=== PATIENT | female | born 1965 | race Caucasian/White ===

== ENCOUNTER → 2022-03-26 13:10 | Outpatient (BNVA) | payer MEDICARE, SELFPAY | PROVIDERS: PCP Nurse Practitioner Family; Visit Provider Nurse Practitioner Family | DX: R06.02 Shortness of breath (principal); E11.9 Type 2 diabetes mellitus without complications; E11.40 Type 2 diabetes mellitus with diabetic neuropathy, unspecified; I10 Essential (primary) hypertension; R60.9 Edema, unspecified; N18.32 Chronic kidney disease, stage 3b; Z95.5 Presence of coronary angioplasty implant and graft; Z86.73 Personal history of transient ischemic attack (TIA), and cerebral infarction without residual deficits; Z79.4 Long term (current) use of insulin | CPT/HCPCS: 80053; 80061; 82306; 82310; 83036; 83721; 83880; 83970; 84443 ==

== ENCOUNTER → 2022-04-10 12:08 | Outpatient (BNVA) | payer MEDICARE, SELFPAY | PROVIDERS: PCP Nurse Practitioner Family; Visit Provider Nurse Practitioner Family | DX: E11.22 Type 2 diabetes mellitus with diabetic chronic kidney disease (principal); I12.9 Hypertensive chronic kidney disease with stage 1 through stage 4 chronic kidney disease, or unspecified chronic kidney disease; N18.32 Chronic kidney disease, stage 3b; Z79.4 Long term (current) use of insulin; E78.2 Mixed hyperlipidemia; J44.9 Chronic obstructive pulmonary disease, unspecified; F41.9 Anxiety disorder, unspecified; F32.A Depression, unspecified; F43.10 Post-traumatic stress disorder, unspecified; E11.40 Type 2 diabetes mellitus with diabetic neuropathy, unspecified; G47.00 Insomnia, unspecified; R05.9 Cough, unspecified; G89.29 Other chronic pain | CPT/HCPCS: 80053; 82607; 82728; 82746; 83550 ==

== ENCOUNTER → 2022-05-15 12:49 | Outpatient (BNVA) | payer MEDICARE, SELFPAY | PROVIDERS: PCP Nurse Practitioner Family; Visit Provider Nurse Practitioner Family | DX: D64.9 Anemia, unspecified (principal); F50.89 Other specified eating disorder; J18.9 Pneumonia, unspecified organism; F32.A Depression, unspecified | CPT/HCPCS: 80053; 83550 ==

== ENCOUNTER 2022-08-05 16:22 | Inpatient (IN) | payer MEDICARE, MEDICAID, SELFPAY ==
[2022-08-05] VITALS (30 sets, daily range): BP systolic 90–147; BP diastolic 48–82; PULSE 60–69; RESP 12–21; TEMP 36.5–36.7; O2SAT 92–99; BMI 31.1
--- NOTE | 2022-08-05 16:26 | XRR_ITS ---
PROCEDURE INFORMATION: Exam: XR Chest Exam date and time: 08/05/2022 5:01 PM Age: 57 years old Clinical indication: Cough and dyspnea; Additional info: Dyspnea/cough TECHNIQUE: Imaging protocol: Radiologic exam of the chest. Views: 1 view. COMPARISON: No relevant prior studies available. FINDINGS: Lungs: Lungs are clear bilaterally. Calcified granuloma in the right lower lobe. Pleural spaces: No pleural effusion. No pneumothorax. Heart/Mediastinum: Cardiac silhouette is moderately enlarged. Mediastinal contours are unremarkable. Vasculature: Vascular calcifications in the aorta. Bones/joints: Unremarkable for age. XR/XR chest 1V portable [id number] IMPRESSION: 1. No acute cardiopulmonary process. 2. Incidental/nonacute findings are listed in the report.
--- NOTE | 2022-08-05 17:00 | W.ED.WEAKNES ---
Documented by User: Daniel Walter DO 08/07/22 10:59 HPI - Weakness General: Chief complaint: Weakness Stated complaint: weakness Time Seen by Provider: 08/05/22 16:26 Source: patient Mode of arrival: EMS History of Present Illness: The 7-year-old female who presents to the emergency room with multiple complaints and a near johnson positive review of systems. She is complaining of weakness for last few days complaining of pain all over complaining of chest pain for the last 2 to 3 days states she feels like someone is sitting on her chest. She states she has a fever with a productive cough and abdominal pain. She denies any vomiting but has been nauseous she has not had any diarrhea. She does deny any dysuria urgency or frequency. She reports having multiple seizures recently she has a history of seizures but is not on anything for them. Evidently it was discussed last year but she did not follow through on it. She is on apixaban no recent falls. She has a history of coronary disease and previous strokes has residual left-sided facial and arm and leg deficits. Complaint: generalized weakness Onset (ago): day(s) Duration: constant Location: generalized Relieving factors: none Exacerbating factors: none Associated symptoms: Reports chest pain, decreased appetite, fever(s), myalgias, nausea and short of breath; Denies chills, confusion, melena, diaphoresis, dysuria, easy bruising, headache(s), rash, syncope or vomiting Review of Systems Const: Reports: fever(s); Denies: chills or diaphoresis Card: Reports: chest pain; Denies: syncope GI: Reports: nausea; Denies: vomiting or melena : Denies: dysuria Neuro: Denies: headache(s) or confusion Johnson/Lymph: Denies: easy bruising PFS ED PFSH: Medical History (Updated 08/06/22 @ 10:20 by Hao Song MD) COVID-19 (12/2020) HOSPITALIZED 01/15/2021-06/09/2021 Diabetes mellitus type 2, insulin dependent Diabetic neuropathy History of heart attack History of stroke Hypertension Kidney carcinoma STAGE 4 LEFT KIDNEY REMOVED PTSD (post-traumatic stress disorder) Right great toe amputee SVT (supraventricular tachycardia) Surgical History History of heart artery stent Social History Smoking and tobacco status: never smoked Physical Exam Const: GENERAL APPEARANCE: cooperative and comfortable ORIENTATION/CONSCIOUSNESS: Yes awake, Yes oriented to person, Yes oriented to place and Yes oriented to time HENMT: COMMON NORMALS: normocephalic and atraumatic HEAD & SCALP: normocephalic and atraumatic Neck/C-Spine: COMMON NORMALS: full ROM, no lymphadenopathy and supple Resp: COMMON NORMALS: normal respiratory effort, No retractions, No use of accessory muscles and clear to auscultation bilaterally AUSCULTATION: clear to auscultation bilaterally Cardio: COMMON NORMALS: regular rate, regular rhythm and No murmurs present (Cardio) RATE: regular rate RHYTHM: regular rhythm GI: COMMON NORMALS: Soft to palpation and No hepatosplenomegaly present AUSCULTATION: Yes normoactive bowel sounds PALPATION: Yes Soft to palpation, No Tenderness to palpation present (GI), No Guarding due to palpation present (GI) and Yes No hepatosplenomegaly present Extremity: COMMON NORMALS: normal to inspection, capillary refill normal, no clubbing, cyanosis or edema, no calf tenderness and no pedal edema Neuro: SENSORIUM/ORIENTATION: Yes oriented to person, Yes oriented to place and Yes oriented to time OTHER: No focal neurologic deficits. Skin: COMMON NORMALS: no rashes or lesions noted GENERAL SKIN EXAM: no rashes or lesions noted Course Vital Signs: Vital signs: Vital Signs Temperature 97.6 F 08/07/22 07:00 Pulse Rate 80 08/07/22 10:12 Respiratory Rate 16 08/07/22 10:12 Blood Pressure 169/79 08/07/22 07:00 Pulse Oximetry 96 08/07/22 10:12 Oxygen Delivery Me thod 08/07/22 10:12 Oxygen Flow Rate 3 08/07/22 03:00 MDM - Weakness Medical Decision Making Care signed out to Dr. Ramachandran at change of shift. See final notes for diagnosis and disposition. Patient presents with weakness along with complaints of chest pain patient states she is not able to ambulate due to left leg weakness she does have some old deficits from her stroke she does have some slight facial droop she states that is old she has no visual deficits here is hard to discern what is old but her new symptoms been going on for 2 days with this weakness and difficulty walking head CT did show a possible acute infarct will admit at this time. Lab Data 08/05/22 16:57 08/05/22 16:57 Radiology Impressions Chest X-Ray 08/05/22 16:26 IMPRESSION: 1. No acute cardiopulmonary process. 2. Incidental/nonacute findings are listed in the report. Head CT 08/05/22 20:26 IMPRESSION: 1. There is an area of decreased density loss of cruz-matter differentiation in the right occipital lobe, findings are suspicious for an acute infarct. 2. Suem-gu-spjhzjgf mucoperiosteal thickening in the visualized paranasal sinuses. 3. Incidental/nonacute findings are listed in the report. COMMENTS: THIS REPORT CONTAINS FINDINGS THAT MAY BE CRITICAL TO PATIENT CARE. The findings were verbally communicated via telephone conference with BOBBI Queen at 10:05 PM DIRECTOR OF INDIVIDUAL GIVING on 08/05/2022. The findings were acknowledged and understood. Renal Ultrasound 08/06/22 01:44 IMPRESSION: 1. Negative RIGHT kidney. 2. Prior LEFT nephrectomy. 3. No post void residual in the urinary bladder. Laboratory Results WBC 11.3 10^3/uL (4.0-10.0) H 08/05/22 16:57 RBC 3.60 10^6/uL (4.1-5.3) L 08/05/22 16:57 Hgb 7.7 g/dL (11.5-15.3) L 08/05/22 16:57 Hct 27.3 % (37.0-47.0) L 08/05/22 16:57 MCV 75.8 fl (81-99) L 08/05/22 16:57 MCH 21.4 pg (28.0-34.0) L 08/05/22 16:57 MCHC 28.2 g/dL (30.0-36.0) L 08/05/22 16:57 RDW 18.8 % (12.1-15.1) H 08/05/22 16:57 Plt Count 403 10^3/cmm (130-400) H 08/05/22 16:57 MPV 10.2 fL (7.4-10.4) 08/05/22 16:57 Neut % (Auto) 62.6 % 08/05/22 16:57 Lymph % (Auto) 27.4 % 08/05/22 16:57 [place] % (Auto) 6.6 % 08/05/22 16:57 Eos % (Auto) 2.0 % 08/05/22 16:57 Baso % (Auto) 0.4 % 08/05/22 16:57 Neut # (Auto) 7.05 10^3/uL (1.8-7.7) 08/05/22 16:57 Lymph # (Auto) 3.1 10^3/uL (0.8-4.8) 08/05/22 16:57 [place] # (Auto) 0.7 10^3/uL (0.2-0.9) 08/05/22 16:57 Eos # (Auto) 0.2 10^3/uL (0.0-0.8) 08/05/22 16:57 Baso # (Auto) 0.1 10^3/uL (0.0-0.1) 08/05/22 16:57 Nucleated RBC % (auto) 0 % 08/05/22 16:57 Nucleated RBCs # 0.0 /100WBC 08/05/22 16:57 Sodium 133 mmol/L (136-145) L 08/05/22 16:57 Potassium 4.3 mmol/L (3.5-5.1) 08/05/22 16:57 Chloride 99 mmol/L (98-107) 08/05/22 16:57 Carbon Dioxide 21 mmol/L (22-29) L 08/05/22 16:57 Anion Gap 17.3 (5-19) 08/05/22 16:57 BUN 25 mg/dL (6-20) H 08/05/22 16:57 Creatinine 1.8 mg/dL (0.5-0.9) H 08/05/22 16:57 GFR Calculation 29.1 mL/min (90-130) L 08/05/22 16:57 Glucose 159 mg/dL (65-115) H 08/05/22 16:57 Calculated Osmolality 284 mOsm/kg (285-295) L 08/05/22 16:57 Calcium 8.4 mg/dL (8.5-10.5) L 08/05/22 16:57 Total Bilirubin 0.2 mg/dL (0.15-1.2) 08/05/22 16:57 AST 11 U/L (0-32) 08/05/22 16:57 ALT 10 U/L (0-33) 08/05/22 16:57 Alkaline Phosphatase 162 U/L (35-105) H 08/05/22 16:57 Creatine Kinase 41 U/L (26-192) 08/05/22 16:57 Troponin T Baseline 93 ng/L (0-10) H 08/05/22 16:57 Troponin T 120 Minute 91.10 ng/L (0-10) H 08/05/22 19:29 Delta Troponin T -1.90 ABS# (0-10) L 08/05/22 19:29 Total Protein 5.9 g/dL (6.6-8.7) L 08/05/22 16:57 Albumin 3.5 g/dL (3.5-5.2) 08/05/22 16:57 Globulin 2.4 g/dL (1.3-4.6) 08/05/22 16:57 Urine Color Yellow (Yellow) 08/05/22 17:15 Urine Appearance Clear (CLEAR) 08/05/22 17:15 Urine pH 5 (5-7) 08/05/22 17:15 Ur Specific [place] 1.015 (1.005-1.030) 08/05/22 17:15 Urine Protein 3+ (Negative) H 08/05/22 17:15 Urine Glucose (UA) 2+ (Normal) H 08/05/22 17:15 Urine Ketones Negative (Negative) 08/05/22 17:15 Urine Blood Neg (Negative) 08/05/22 17:15 Urine Nitrate Negative (Negative) 08/05/22 17:15 Urine Bilirubin Neg (Negative) 08/05/22 17:15 Urine Urobilinogen Neg mg/dL (Negative) 08/05/22 17:15 Ur Leukocyte Esterase Trace (Negative) H 08/05/22 17:15 Urine RBC Rare /hpf (0-2) 08/05/22 17:15 Urine WBC 10-15 /hpf (0-5) H 08/05/22 17:15 Ur Squamous Epith Cells 15-25 /hpf (0-5) H 08/05/22 17:15 Amorphous Sediment Not Reportable 08/05/22 17:15 Urine Bacteria 1+ /hpf (NONE) H 08/05/22 17:15 Serum Ketones Negative (Negative) 08/05/22 16:57 Discharge Plan Discharge Patient Disposition: Admitted As Inpatient Admit Provider: Rosette Canales Clinical Impression: Weakness, Chest pain Condition: Stable Discharge Diet: Advance as tolerated Discharge Activity: Resume usual activity Coding Level of Care Code 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[employer] Documented by User: Bobbi Ramachandran MD 08/05/22 22:33 HPI - Weakness General: Chief complaint: Weakness Stated complaint: weakness Time Seen by Provider: 08/05/22 16:26 PFSH ED PFSH: Medical History (Updated 08/06/22 @ 10:20 by Hao Song MD) COVID-19 (12/2020) HOSPITALIZED 01/15/2021-06/09/2021 Diabetes mellitus type 2, insulin dependent Diabetic neuropathy History of heart attack History of stroke Hypertension Kidney carcinoma STAGE 4 LEFT KIDNEY REMOVED PTSD (post-traumatic stress disorder) Right great toe amputee SVT (supraventricular tachycardia) Surgical History History of heart artery stent Social History Smoking and tobacco status: never smoked Course Vital Signs: Vital signs: Vital Signs Temperature 97.6 F 08/07/22 07:00 Pulse Rate 80 08/07/22 10:12 Respiratory Rate 16 08/07/22 10:12 Blood Pressure 169/79 08/07/22 07:00 Pulse Oximetry 96 08/07/22 10:12 Oxygen Delivery Me thod 08/07/22 10:12 Oxygen Flow Rate 3 08/07/22 03:00 MDM - Weakness Medical Decision Making Patient presents with weakness along with complaints of chest pain patient states she is not able to ambulate due to left leg weakness she does have some old deficits from her stroke she does have some slight facial droop she states that is old she has no visual deficits here is hard to discern what is old but her new symptoms been going on for 2 days with this weakness and difficulty walking head CT did show a possible acute infarct will admit at this time. Lab Data 08/05/22 16:57 08/05/22 16:57 Radiology Impressions Chest X-Ray 08/05/22 16:26 IMPRESSION: 1. No acute cardiopulmonary process. 2. Incidental/nonacute findings are listed in the report. Head CT 08/05/22 20:26 IMPRESSION: 1. There is an area of decreased density loss of cruz-matter differentiation in the right occipital lobe, findings are suspicious for an acute infarct. 2. Zkql-kj-jecegsrq mucoperiosteal thickening in the visualized paranasal sinuses. 3. Incidental/nonacute findings are listed in the report. COMMENTS: THIS REPORT CONTAINS FINDINGS THAT MAY BE CRITICAL TO PATIENT CARE. The findings were verbally communicated via telephone conference with BOBBI Queen at 10:05 PM DIRECTOR OF INDIVIDUAL GIVING on 08/05/2022. The findings were acknowledged and understood. Renal Ultrasound 08/06/22 01:44 IMPRESSION: 1. Negative RIGHT kidney. 2. Prior LEFT nephrectomy. 3. No post void residual in the urinary bladder. Laboratory Results WBC 11.3 10^3/uL (4.0-10.0) H 08/05/22 16:57 RBC 3.60 10^6/uL (4.1-5.3) L 08/05/22 16:57 Hgb 7.7 g/dL (11.5-15.3) L 08/05/22 16:57 Hct 27.3 % (37.0-47.0) L 08/05/22 16:57 MCV 75.8 fl (81-99) L 08/05/22 16:57 MCH 21.4 pg (28.0-34.0) L 08/05/22 16:57 MCHC 28.2 g/dL (30.0-36.0) L 08/05/22 16:57 RDW 18.8 % (12.1-15.1) H 08/05/22 16:57 Plt Count 403 10^3/cmm (130-400) H 08/05/22 16:57 MPV 10.2 fL (7.4-10.4) 08/05/22 16:57 Neut % (Auto) 62.6 % 08/05/22 16:57 Lymph % (Auto) 27.4 % 08/05/22 16:57 [place] % (Auto) 6.6 % 08/05/22 16:57 Eos % (Auto) 2.0 % 08/05/22 16:57 Baso % (Auto) 0.4 % 08/05/22 16:57 Neut # (Auto) 7.05 10^3/uL (1.8-7.7) 08/05/22 16:57 Lymph # (Auto) 3.1 10^3/uL (0.8-4.8) 08/05/22 16:57 [place] # (Auto) 0.7 10^3/uL (0.2-0.9) 08/05/22 16:57 Eos # (Auto) 0.2 10^3/uL (0.0-0.8) 08/05/22 16:57 Baso # (Auto) 0.1 10^3/uL (0.0-0.1) 08/05/22 16:57 Nucleated RBC % (auto) 0 % 08/05/22 16:57 Nucleated RBCs # 0.0 /100WBC 08/05/22 16:57 Sodium 133 mmol/L (136-145) L 08/05/22 16:57 Potassium 4.3 mmol/L (3.5-5.1) 08/05/22 16:57 Chloride 99 mmol/L (98-107) 08/05/22 16:57 Carbon Dioxide 21 mmol/L (22-29) L 08/05/22 16:57 Anion Gap 17.3 (5-19) 08/05/22 16:57 BUN 25 mg/dL (6-20) H 08/05/22 16:57 Creatinine 1.8 mg/dL (0.5-0.9) H 08/05/22 16:57 GFR Calculation 29.1 mL/min (90-130) L 08/05/22 16:57 Glucose 159 mg/dL (65-115) H 08/05/22 16:57 Calculated Osmolality 284 mOsm/kg (285-295) L 08/05/22 16:57 Calcium 8.4 mg/dL (8.5-10.5) L 08/05/22 16:57 Total Bilirubin 0.2 mg/dL (0.15-1.2) 08/05/22 16:57 AST 11 U/L (0-32) 08/05/22 16:57 ALT 10 U/L (0-33) 08/05/22 16:57 Alkaline Phosphatase 162 U/L (35-105) H 08/05/22 16:57 Creatine Kinase 41 U/L (26-192) 08/05/22 16:57 Troponin T Baseline 93 ng/L (0-10) H 08/05/22 16:57 Troponin T 120 Minute 91.10 ng/L (0-10) H 08/05/22 19:29 Delta Troponin T -1.90 ABS# (0-10) L 08/05/22 19:29 Total Protein 5.9 g/dL (6.6-8.7) L 08/05/22 16:57 Albumin 3.5 g/dL (3.5-5.2) 08/05/22 16:57 Globulin 2.4 g/dL (1.3-4.6) 08/05/22 16:57 Urine Color Yellow (Yellow) 08/05/22 17:15 Urine Appearance Clear (CLEAR) 08/05/22 17:15 Urine pH 5 (5-7) 08/05/22 17:15 Ur Specific [place] 1.015 (1.005-1.030) 08/05/22 17:15 Urine Protein 3+ (Negative) H 08/05/22 17:15 Urine Glucose (UA) 2+ (Normal) H 08/05/22 17:15 Urine Ketones Negative (Negative) 08/05/22 17:15 Urine Blood Neg (Negative) 08/05/22 17:15 Urine Nitrate Negative (Negative) 08/05/22 17:15 Urine Bilirubin Neg (Negative) 08/05/22 17:15 Urine Urobilinogen Neg mg/dL (Negative) 08/05/22 17:15 Ur Leukocyte Esterase Trace (Negative) H 08/05/22 17:15 Urine RBC Rare /hpf (0-2) 08/05/22 17:15 Urine WBC 10-15 /hpf (0-5) H 08/05/22 17:15 Ur Squamous Epith Cells 15-25 /hpf (0-5) H 08/05/22 17:15 Amorphous Sediment Not Reportable 08/05/22 17:15 Urine Bacteria 1+ /hpf (NONE) H 08/05/22 17:15 Serum Ketones Negative (Negative) 08/05/22 16:57 EKG Data EKG 1: I personally reviewed and interpreted this EKG as follows: EKG interpretation date: 08/05/22 EKG interpretation time: 19:53 Interpretation: sinus rehana hr [address] or t wave abnormalities qrs 98 qtc 408 Discharge Plan Discharge Patient Disposition: Admitted As Inpatient Admit Provider: Rosette Canales Clinical Impression: Weakness, Chest pain Condition: Stable Discharge Diet: Advance as tolerated Discharge Activity: Resume usual activity 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
[2022-08-05] MEDS: aspirin 81 mg Chew Tablet 324 MG PO ×2 (17:04→22:36)
[2022-08-05 17:11] LABS: Basophils # 0.1 10^3/uL (0.0-0.1); Basophils % 0.4 %; Eosinophils # 0.2 10^3/uL (0.0-0.8); Hematocrit 27.3 % (37.0-47.0); Hemoglobin 7.7 g/dL (11.5-15.3); Lymphocytes # 3.1 10^3/uL (0.8-4.8); Lymphocytes % 27.4 %; Mean Corpuscular HGB Conc 28.2 g/dL (30.0-36.0); Mean Corpuscular Hemoglobin 21.4 pg (28.0-34.0); Mean Corpuscular Volume 75.8 fl (81-99); Mean Platelet Volume 10.2 fL (7.4-10.4); Monocytes # 0.7 10^3/uL (0.2-0.9); Monocytes % 6.6 %; Neutrophils # 7.05 10^3/uL (1.8-7.7); Neutrophils % 62.6 %; Nucleated Red Blood Cells % 0 %; Platelet Count 403 10^3/cmm (130-400); Red Cell Distribution Width 18.8 % (12.1-15.1); White Blood Count 11.3 10^3/uL (4.0-10.0)
--- NOTE | 2022-08-05 17:28 | ECG_ITS ---
[facility] Test Date: 2022-08-05 Pat Name: Connie Costello Department: Room: Gender: Female Risk Compliance Manager: : 1965 Requested By: Daniel Platt Order Number: [id number] Driss MD: Fish Ray M.D. Measurements Intervals [place] Rate: 59 P: 60 MO: 183 QRS: 38 QRSD: 97 T: 30 QT: 407 QTc: 405 Interpretive Statements SINUS BRADYCARDIA POSSIBLE LEFT ATRIAL ENLARGEMENT [-0.1mV P-WAVE IN V1/V2] NONSPECIFIC T-WAVE ABNORMALITY No previous ECG available for comparison Electronically Signed On 08-05-2022 18:08:20 CLIP ON SUNGLASSES INSPECTOR by Fish Ray M.D. [id number]
[2022-08-05 17:35] LABS: Ketone (Acetest) Serum Negative (Negative)
[2022-08-05 17:38] LABS: Troponin(5th) Baseline 93 ng/L (0-10)
[2022-08-05 17:39] LABS: Alanine Aminotransferase 10 U/L (0-33); Albumin Level 3.5 g/dL (3.5-5.2); Alkaline Phosphatase 162 U/L (35-105); Anion Gap 17.3 (5-19); Aspartate Amino Transferase 11 U/L (0-32); Blood Urea Nitrogen 25 mg/dL (6-20); Calcium 8.4 mg/dL (8.5-10.5); Carbon Dioxide 21 mmol/L (22-29); Chloride 99 mmol/L (98-107); Creatine Phosphokinase 41 U/L (26-192); Globulin 2.4 g/dL (1.3-4.6); Glomerular Filtration Rate 29.1 mL/min (90-130); Glucose 159 mg/dL (65-115); Osmolality Calculated 284 mOsm/kg (285-295); Potassium 4.3 mmol/L (3.5-5.1); Sodium 133 mmol/L (136-145); Total Bilirubin 0.2 mg/dL (0.15-1.2); Total Protein 5.9 g/dL (6.6-8.7)
[2022-08-05] MEDS: ipratropium-albuterol 3 mL Neb INHALATION (18:01)
[2022-08-05 18:04] LABS: Add Urine Culture? No; Add Urine Microscopic? YES; Bacteria Urine 1+ /hpf; Bilirubin Urine Neg (Negative); Blood Urine Neg (Negative); Glucose Urine UA 2+ (Normal); Ketones Urine Negative (Negative); Leukocyte Esterase Urine Trace (Negative); Nitrate Urine Negative (Negative); Protein Urine 3+ (Negative); RBC Urine RARE /hpf (0-2); Specific Gravity, Urine 1.015 (1.005-1.030); Squamous Epithelial Cell Urine 15-25 /hpf (0-5); Urine Appearance Clear (CLEAR); Urine Color Yellow (Yellow); Urobilinogen Urine Neg (Negative); pH Urine 5 (5-7)
--- NOTE | 2022-08-05 18:59 | ECG_ITS ---
[facility] Test Date: 2022-08-05 Pat Name: Connie Costello Department: Room: Gender: Female Journeyman Molder: : 1965 Requested By: Daniel Platt Order Number: [id number] Driss MD: Fish Ray M.D. Measurements Intervals [place] Rate: 57 P: 40 UT: 198 QRS: 28 QRSD: 98 T: 38 QT: 414 QTc: 404 Interpretive Statements SINUS BRADYCARDIA POSSIBLE LEFT ATRIAL ENLARGEMENT [-0.1mV P-WAVE IN V1/V2] Compared to ECG 08/05/2022 17:28:27 T-wave abnormality no longer present Electronically Signed On 08-05-2022 22:47:35 ENVELOPE FOLDING MACHINE OPERATOR by Fish Ray M.D. [id number]
[2022-08-05] MEDS: morphine 4 mg/mL SDV 1 mL IVP (19:25)
[2022-08-05] MEDS: ondansetron 2 mg/ML SDV 2 mL 4 MG IVP (19:25)
--- NOTE | 2022-08-05 20:26 | CTR_ITS ---
PROCEDURE INFORMATION: Exam: CT Head Without Contrast Exam date and time: 08/05/2022 9:43 PM Age: 57 years old Clinical indication: Condition or disease; Convulsions or seizures; Patient HX: Seizure activity with left leg weakness. History of skull fracture. TECHNIQUE: Imaging protocol: Computed tomography of the head without contrast. Sagittal and coronal reformatted images were created and reviewed. Radiation optimization: All CT scans at this facility use at least one of these dose optimization techniques: automated exposure control; mA and/or kV adjustment per patient size (includes targeted exams where dose is matched to clinical indication); or iterative reconstruction. Other protocol: This patient has received 0 known CTs and 0 known cardiac nuclear medicine studies in the 12 months prior to the current study. COMPARISON: No relevant prior studies available. RADIATION DOSE METRICS: Total DLP (mGy-cm): 6.86 FINDINGS: Brain: There is an area of decreased density loss of cruz-matter differentiation in the right occipital lobe, findings are suspicious for an acute infarct (series 10, images 66-69). No acute intracranial hemorrhage. No intra-axial or extra-axial masses. No midline shift. No extra-axial fluid collections. Cerebral ventricles: No hydrocephalus. Paranasal sinuses: Vbaz-th-yhcksszt mucoperiosteal thickening in the visualized paranasal sinuses. Mastoid air cells: Mastoid air cells are clear bilaterally. Orbital cavities: Globes and lenses, extraocular muscles, and optic nerves are intact bilaterally. No acute intraorbital abnormality. Nasal cavity: Maxine bullosa of the right and left middle turbinates. Bones/joints: No acute fracture. Soft tissues: No acute abnormality of the extracranial soft tissues. Vasculature: Mild atherosclerotic changes in the visualized arteries. CT/CT head wo con* [id number] IMPRESSION: 1. There is an area of decreased density loss of cruz-matter differentiation in the right occipital lobe, findings are suspicious for an acute infarct. 2. Yecu-ks-hlzolhie mucoperiosteal thickening in the visualized paranasal sinuses. 3. Incidental/nonacute findings are listed in the report. COMMENTS: THIS REPORT CONTAINS FINDINGS THAT MAY BE CRITICAL TO PATIENT CARE. The findings were verbally communicated via telephone conference with BOBBI Queen at 10:05 PM WOOL SPOTTER on 08/05/2022. The findings were acknowledged and understood.
--- NOTE | 2022-08-05 22:59 | ECG_ITS ---
[facility] Test Date: 2022-08-06 Pat Name: Connie Costello Department: Room: 255 Gender: Female Cell Stripper Final: : 1965 Requested By: Daniel Platt Order Number: [id number] Driss MD: Alexus Bojorquez M.D. Measurements Intervals [place] Rate: 59 P: 59 HI: 185 QRS: 33 QRSD: 103 T: 47 QT: 389 QTc: 387 Interpretive Statements SINUS BRADYCARDIA NONSPECIFIC T-WAVE ABNORMALITY Compared to ECG 08/05/2022 19:53:27 T-wave abnormality now present Electronically Signed On 08-07-2022 0:15:04 GOLF CLUB ASSEMBLER by Alexus Bojorquez M.D. [id number]
[2022-08-05 23:10] LABS: Troponin 5 6HR 88.82 ng/L (0-10)
[2022-08-05 23:41] LABS: Troponin 5 6HR Delta -4.18 ng/L (0-12)
[2022-08-06] VITALS (10 sets, daily range): BP systolic 92–154; BP diastolic 50–78; PULSE 60–76; RESP 15–20; TEMP 36.4–37; O2SAT 90–96; BMI 32.0
[2022-08-06 00:45] LABS: Glucose Point of Care 278 mg/dL (70-110)
--- NOTE | 2022-08-06 01:20 | P.HP_ITS ---
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 Patient states that she has been feeling unwell over the past 2 weeks though is unable to pinpoint any localizing symptoms. She answers yes to complaints of chest pain, dyspnea, palpitations, states that she has a history of atrial fibrillation and her heart rate has been running bradycardic in the 40s as recently as this morning. She reports being compliant with all of her medications. Additionally reports a review of systems positive for abdominal pain, nausea vomiting or diarrhea. She has not had a bowel movement yet. No witnessed vomiting today. States that she may have had a subjective fever. She complains of pain in her head, left arm and bilateral legs. Attributes this to neuropathy. Patient reports a past history of A-fib, though per review of primary's records this is noted as an SVT. She is on Eliquis 2.5 mg twice daily presumably for stroke prevention, though she is uncertain as to why she is on a reduced dose of the Eliquis. Denies any past history of bleeding manifestations. She is on iron supplementation for chronic anemia noted at least since March 2022. Review of Systems General: Reports: 10 or more systems reviewed and unremarkable except in HPI and below Const: Reports: chills and body aches; Denies: fever(s) Eyes: Denies: change in vision, blurry vision or photophobia ENMT: Reports: hoarseness; Denies: throat pain, enlarged tonsils, odynophagia or nasal congestion Card: Reports: chest pain, palpitations and irregular heart rhythm; Denies: edema, swelling of feet/ankles, lightheadedness, pre-syncope, dyspnea on exertion or orthopnea Resp: Reports: dyspnea, productive cough, non-productive cough and wheezing; Denies: stridor, pain on inspiration, change in phlegm color, hemoptysis or chest congestion GI: Reports: abdominal pain, nausea and vomiting; Denies: hematemesis, coffee ground emesis, dysphagia, heartburn, diarrhea, constipation, GI cramping, change in stool character, hematochezia or melena : Denies: flank pain, difficulty voiding, dysuria, urinary frequency, uri nary urgency, urinary hesitancy or hematuria Musc: Denies: neck pain, back pain, extremity pain, joint swelling, joint warmth or deformity Neuro: Reports: headache(s), numbness in extremities, weakness in extremities and sensory changes; Denies: difficulty walking, frequent falls, dizziness, vertigo, behavioral changes, Slurred speech present or seizure-like activity Psych: Denies: anxiety, depression, suicidal ideation or homicidal ideation Endo: Denies: polyuria, polydipsia, tired all the time, cold intolerance or hot flashes Johnson/Lymph: Denies: easy bruising or easy bleeding Medications/Allergies Home Medications Medication Instructions Recorded Confirmed Last Taken Type albuterol sulfate 90 mcg/actuation 2 puff inhalation QID PRN 03/25/22 08/06/22 07/23/22 Rx aerosol inhaler (ProAir HFA) shortness of breath or wheezing #8.5 grams blood sugar diagnostic (Blood #50 ea 03/25/22 05/14/22 Unknown Rx Glucose Test strips) blood-glucose meter #1 ea 03/25/22 05/14/22 Unknown Rx budesonide-formoterol HFA 160 2 puff inhalation BID #10.2 grams 03/25/22 08/06/22 Unknown Rx mcg-4.5 mcg/actuation aerosol inhaler (Symbicort) gabapentin 300 mg capsule 300 mg PO TID 90 days #270 caps 03/25/22 08/06/22 08/04/22 15:00 Rx ipratropium 0.5 mg-albuterol 3 mg 3 ml inhalation Q4H PRN wheezing 03/25/22 08/06/22 07/22/22 Rx (2.5 mg base)/3 mL nebulization #180 mL soln lancets (Comfort Lancets) #100 ea 03/25/22 05/14/22 Unknown Rx pen needle, diabetic 33 gauge x #100 ea 03/26/22 05/14/22 Unknown Rx 3/16 (Comfort EZ Pen [place]) insulin syringes (disposable) 1 mL #500 ea 04/04/22 05/14/22 Unknown Rx duloxetine 20 mg capsule,delayed 20 mg PO BID 90 days #180 caps 04/10/22 08/06/22 08/05/22 07:00 Rx release metoprolol succinate 25 mg 50 mg PO BID 04/10/22 08/06/22 08/05/22 07:00 History tablet,extended release 24 hr folic acid 1 mg tablet 1 mg PO DAILY 90 days #90 tabs 04/11/22 08/06/22 Unknown Rx acetaminophen 300 mg-codeine 15 mg 1 tab PO TID PRN pain 7 days #21 05/14/22 08/06/22 07/21/22 Rx tablet tabs apixaban 2.5 mg tablet (Eliquis) 2.5 mg PO BID #60 tabs 05/14/22 08/06/2201/18 07:00 Rx cholecalciferol (vitamin D3) 125 125 mcg PO DAILY 90 days #90 caps 05/14/22 08/06/22 08/05/22 07:00 Rx mcg (5,000 unit) capsule clonidine HCl 0.1 mg tablet 0.1 mg PO TID 90 days #270 tabs 05/14/22 08/06/22 08/05/22 15:00 Rx docusate sodium 250 mg capsule 250 mg PO BID PRN constipation 90 05/14/22 08/06/22 07/23/22 Rx (DSS) days #180 caps famotidine 20 mg tablet (Pepcid) 20 mg PO BID 90 days #180 tabs 05/14/22 08/06/22 08/05/22 07:00 Rx ferrous sulfate 325 mg (65 mg 325 mg PO BID 90 days #180 tabs 05/14/22 08/06/22 08/05/22 07:00 Rx iron) tablet prazosin 1 mg capsule 1 mg PO .QHS 90 days #90 caps 05/14/22 08/06/22 08/03/22 21:00 Rx promethazine-DM 6.25 mg-15 mg/5 mL 5 ml PO Q6H #200 mL 05/14/22 08/06/22 07/30/22 Rx oral syrup zolpidem 10 mg tablet (Ambien) 10 mg PO .QHS 30 days #30 tabs 05/14/22 08/06/22 07/31/22 21:00 Rx atorvastatin 40 mg tablet 40 mg PO BEDTIME 02/08/23 02/08/23 02/06/23 21:00 History insulin detemir U-100 100 unit/mL See Rx Instructions .Route .COMPLEX 08/06/22 08/06/22 08/03/22 History subcutaneous solution montelukast 10 mg tablet 10 mg PO BEDTIME 08/06/22 08/06/22 Unknown History Allergies Allergy/AdvReac Type Severity Reaction Status Date / Time acetaminophen Allergy Unknown Unknown Verified 08/05/22 16:36 [From Darvocet-N] clindamycin Allergy Unknown Unknown Verified 08/05/22 16:36 Latex, Natural Rubber Allergy Unknown Unknown Verified 08/05/22 16:36 propoxyphene Allergy Unknown Unknown Verified 08/05/22 16:36 [From Darvocet-N] Sulfa (Sulfonamide Allergy Unknown Unknown Verified 08/05/22 16:36 Antibiotics) PFSH Acute PFSH: Medical History Diabetes mellitus type 2, insulin dependent Diabetic neuropathy History of heart attack History of stroke Hypertension PTSD (post-traumatic stress disorder) SVT (supraventricular tachycardia) Surgical History History of heart artery stent Social History Smoking and tobacco status: never smoked Vitals/I&O/Wt Last Vital Signs Temp 97.7 F 08/05/22 23:40 Pulse 69 08/05/22 23:40 Resp 16 08/05/22 23:40 BP 103/61 08/05/22 23:40 Pulse Ox 92 08/05/22 23:40 O2 Del Method 08/05/22 23:40 Weight last 48 hrs Weight 77.111 kg Physical Exam Narrative: General: No acute distress, AO x3 HEENT: PERRLA, pupils bilaterally equal and reactive, pallors not present Chest: Normal vesicular breath sounds, no added sounds, equal good air entry bilaterally CVS: S1-S2 regular, no murmurs, no tachycardia, no gallops, no rubs Abdomen: Soft, nontender, no organomegaly, bowel sounds present Neuro: Left-sided facial palsy, appears to be UMN type. No gross focal deficits on exam of upper or lower extremities. Data 08/05/22 16:57 08/05/22 16:57 Other Labs: Radiology Impressions Chest X-Ray 08/05/22 16:26 IMPRESSION: 1. No acute cardiopulmonary process. 2. Incidental/nonacute findings are listed in the report. Head CT 08/05/22 20:26 IMPRESSION: 1. There is an area of decreased density loss of cruz-matter differentiation in the right occipital lobe, findings are suspicious for an acute infarct. 2. Yxaz-uo-valdnilg mucoperiosteal thickening in the visualized paranasal sinuses. 3. Incidental/nonacute findings are listed in the report. COMMENTS: THIS REPORT CONTAINS FINDINGS THAT MAY BE CRITICAL TO PATIENT CARE. The findings were verbally communicated via telephone conference with BOBBI Queen at 10:05 PM [employer] on 08/05/2022. The findings were acknowledged and understood. Laboratory Results WBC 11.3 10^3/uL (4.0-10.0) H 08/05/22 16:57 RBC 3.60 10^6/uL (4.1-5.3) L 08/05/22 16:57 Hgb 7.7 g/dL (11.5-15.3) L 08/05/22 16:57 Hct 27.3 % (37.0-47.0) L 08/05/22 16:57 MCV 75.8 fl (81-99) L 08/05/22 16:57 MCH 21.4 pg (28.0-34.0) L 08/05/22 16:57 MCHC 28.2 g/dL (30.0-36.0) L 08/05/22 16:57 RDW 18.8 % (12.1-15.1) H 08/05/22 16:57 Plt Count 403 10^3/cmm (130-400) H 08/05/22 16:57 MPV 10.2 fL (7.4-10.4) 08/05/22 16:57 Neut % (Auto) 62.6 % 08/05/22 16:57 Lymph % (Auto) 27.4 % 08/05/22 16:57 Hartley % (Auto) 6.6 % 08/05/22 16:57 Eos % (Auto) 2.0 % 08/05/22 16:57 Baso % (Auto) 0.4 % 08/05/22 16:57 Neut # (Auto) 7.05 10^3/uL (1.8-7.7) 08/05/22 16:57 Lymph # (Auto) 3.1 10^3/uL (0.8-4.8) 08/05/22 16:57 Hartley # (Auto) 0.7 10^3/uL (0.2-0.9) 08/05/22 16:57 Eos # (Auto) 0.2 10^3/uL (0.0-0.8) 08/05/22 16:57 Baso # (Auto) 0.1 10^3/uL (0.0-0.1) 08/05/22 16:57 Nucleated RBC % (auto) 0 % 08/05/22 16:57 Nucleated RBCs # 0.0 /100WBC 08/05/22 16:57 Sodium 133 mmol/L (136-145) L 08/05/22 16:57 Potassium 4.3 mmol/L (3.5-5.1) 08/05/22 16:57 Chloride 99 mmol/L (98-107) 08/05/22 16:57 Carbon Dioxide 21 mmol/L (22-29) L 08/05/22 16:57 Anion Gap 17.3 (5-19) 08/05/22 16:57 BUN 25 mg/dL (6-20) H 08/05/22 16:57 Creatinine 1.8 mg/dL (0.5-0.9) H 08/05/22 16:57 GFR Calculation 29.1 mL/min (90-130) L 08/05/22 16:57 Glucose 159 mg/dL (65-115) H 08/05/22 16:57 POC Glucose 278 mg/dL (70-110) H 08/06/22 00:41 Calculated Osmolality 284 mOsm/kg (285-295) L 08/05/22 16:57 Calcium 8.4 mg/dL (8.5-10.5) L 08/05/22 16:57 Total Bilirubin 0.2 mg/dL (0.15-1.2) 08/05/22 16:57 AST 11 U/L (0-32) 08/05/22 16:57 ALT 10 U/L (0-33) 08/05/22 16:57 Alkaline Phosphatase 162 U/L (35-105) H 08/05/22 16:57 Creatine Kinase 41 U/L (26-192) 08/05/22 16:57 Troponin T Baseline 93 ng/L (0-10) H 08/05/22 16:57 Troponin T 120 Minute 91.10 ng/L (0-10) H 08/05/22 19:29 Delta Troponin T -1.90 ABS# (0-10) L 08/05/22 19:29 Troponin T Hi Sens 6Hr 88.82 ng/L (0-10) H 08/05/22 22:45 Troponin T Hi Sens 6Hr Delta -4.18 ng/L (0-12) L 08/05/22 22:45 Total Protein 5.9 g/dL (6.6-8.7) L 08/05/22 16:57 Albumin 3.5 g/dL (3.5-5.2) 08/05/22 16:57 Globulin 2.4 g/dL (1.3-4.6) 08/05/22 16:57 Urine Color Yellow (Yellow) 08/05/22 17:15 Urine Appearance Clear (CLEAR) 08/05/22 17:15 Urine pH 5 (5-7) 08/05/22 17:15 Ur Specific [place] 1.015 (1.005-1.030) 08/05/22 17:15 Urine Protein 3+ (Negative) H 08/05/22 17:15 Urine Glucose (UA) 2+ (Normal) H 08/05/22 17:15 Urine Ketones Negative (Negative) 08/05/22 17:15 Urine Blood Neg (Negative) 08/05/22 17:15 Urine Nitrate Negative (Negative) 08/05/22 17:15 Urine Bilirubin Neg (Negative) 08/05/22 17:15 Urine Urobilinogen Neg mg/dL (Negative) 08/05/22 17:15 Ur Leukocyte Esterase Trace (Negative) H 08/05/22 17:15 Urine RBC Rare /hpf (0-2) 08/05/22 17:15 Urine WBC 10-15 /hpf (0-5) H 08/05/22 17:15 Ur Squamous Epith Cells 15-25 /hpf (0-5) H 08/05/22 17:15 Amorphous Sediment Not Reportable 08/05/22 17:15 Urine Bacteria 1+ /hpf (NONE) H 08/05/22 17:15 Serum Ketones Negative (Negative) 08/05/22 16:57 A&P Assessment and plan (1) Stroke: There is an area of decreased density loss of cruz-matter differentiation in the right occipital lobe, findings are suspicious for an acute infarct. Her chief complaints at this time is left lower extremity weakness Admit to [facility] [place] Carries a past medical history of atrial fibrillation, currently she is on Eliquis 2.5 mg p.o. twice daily. Uncertain why she is on a reduced dose of Eliquis. Per review of records there is also mention history of DVT in the past, however patient does not seem to recall it at this time. We will monitor on stroke telemetry. She is not a candidate for tPA, onset of symptoms was over 48 hours ago. Check carotid artery ultrasound, cardiac echo For now continue Eliquis 2.5 mg p.o. twice daily. She has a history of anemia which is worsening since subsumed February 2022. She is currently on iron and folic acid supplementation, however anemia is persisting. We will check iron profile again. Additionally check fecal occult blood testing before attempting to increase the dose of Eliquis. Started additionally on aspirin 81 mg p.o. daily and Lipitor 40 mg p.o. at bedtime. PT OT speech evaluation. (2) Elevated troponin: Unclear significance at this time. EKG without any acute ST-T wave changes Troponin elevated in the 80s range, no significant delta at over 6 hours. May be related to stroke Patient however does have a past medical history of coronary artery disease and endorses some intermittent chest pain though appears to be nonspecific. If chest pain is persistent, she may need a stress test for ischemic work-up For now we will proceed first with echocardiogram to assess for any regional wall motion abnormalities. (3) Anemia: From February 2022 patient had low iron and folic acid levels. She is currently on iron supplementation. Anemia still persisting. Check fecal occult blood testing. Also has evidence of CKD with creatinine ranging between 1.5-1.8. Check renal ultrasound. Under past medical history mention of renal malignancy however unable to find specific records for the same. Check PRADEEP panel and SPEP (4) Diabetes mellitus type 2, insulin dependent: Continue lantus 40U daily and add sliding scale will check Hba1c (5) Diabetic neuropathy: Plan h/o A fib: monitor on tele,. reports bradycardia o HR 40s, reduce dose of metoprolol to 25 BID from home dose of 50 BID Hypertension: Currently blood pressure ranging between 90-1 03 systolic. Holding all antihypertensives for now. Attestations Medical Necessity Statement*: Greater than 2 midnight admission is anticipated for above defined care Coding Level of Care Code Acute Code for [facility] Diagnoses Stroke I63.9 Elevated troponin R77.8 Anemia D64.9 Diabetes mellitus type 2, insulin dependent E11.9; Z79.4 Diabetic neuropathy E11.40
--- NOTE | 2022-08-06 01:44 | US_ITS ---
WS: [id number] RENAL ULTRASOUND HISTORY: Evaluate for renal mass COMPARISON: None available. TECHNIQUE: 2-D and color Doppler imaging of the kidney submitted. Right kidney: 10.7 cm x 6.2 cm x 5.9 cm. Normal echogenicity with no hydronephrosis or mass. Left kidney: Prior nephrectomy for cancer. Aorta: Normal. Urinary Bladder: Normal bladder distention with no intraluminal filling defects. No post void residua l. Bilateral ureteral jets are readily visualized. US/US renal BI* [id number] IMPRESSION: 1. Negative RIGHT kidney. 2. Prior LEFT nephrectomy. 3. No post void residual in the urinary bladder.
[2022-08-06] MEDS: sodium chloride 0.9% 1,000 ML 75 ML IV ×2 (01:58→13:07)
[2022-08-06] MEDS: enoxaparin 40 mg/0.4 mL Syringe SUBCUT (01:58)
[2022-08-06 05:00] LABS: Amphetamines Screen Urine Negative (Negative); Barbiturates Screen Urine Negative (Negative); Benzodiazepines Screen Urine Negative (Negative); Cocaine Screen Urine Negative (Negative); Opiate Screen Urine Positive (Negative); PCP Screen Urine Negative (Negative); THC Screen Urine Negative (Negative)
[2022-08-06 05:55] LABS: Estmated Average Glucose 229; Hemoglobin A1C 9.6 % (4.0-6.0)
--- NOTE | 2022-08-06 06:00 | USCV_ITS ---
Connie Costello Age: 57 Gender: F : 1965 Exam Date: 08/06/2022 02:28 Ordering Phys: Rosette Canales MD Technologist: REID [place] [facility] [place]: recent multiple seizures, hx CVA, IDDM x 8 yrs, long-term smoker. hx CAD s/p cardiac stenting 2 months ago Risk Factors: recent multiple seizures, hx CVA, IDDM x 8 yrs, long-term smoker. hx CAD s/p cardiac stenting 2 months ago Previous Vascular Surgery: none Right Brachial BP: 103 / 57 Left Brachial BP: / Right Left Velocity (cm/s) Spectral Plaque Velocity (cm/s) Spectral Plaque Syst/Diast Broadening Syst/Diast Broadening 118.00/18.70 Min Homo Prox CCA 106.50/ 28.90 Min Homo 87.10/ 26.50 Min Homo Mid CCA 106.50/ 30.20 Min Homo 81.60/ 28.70 Min Hetro Distal CCA 88.10 / 28.90 Min Hetro 149.90/35.50 Mod Lg Prox ICA 163.00/ 42.10 Mod Lg 123.60/53.90 Mod Hetro Mid ICA 99.20 / 29.80 Min Hetro 105.20/26.30 Mod Homo Distal ICA 91.50 / 35.30 Min Hetro 444.30 Marked Hetro ECA 182.70 Mod Homo 1.27 ICA/CCA 1.53 Antegrade Vertebral Antegrade 88.10/ 18.40 cm/s 43.30/ 15.80 cm/s Tri Subclavian Tri 101.2 115.7 0 0 FINDINGS Comparison: none available. No significant elevation of systolic or diastolic velocities. Waveforms are normal. Small amount of plaque in the bifurcations. Antegrade vertebral arteries. CONCLUSIONS Bilateral ICA stenosis less than 50%. Mild carotid athersclerosis. Dr. Tasneem Terry DO (Electronically Signed) Final Date: 06 August 2022 05:45 S
[2022-08-06 06:04] LABS: Chol HDL Ratio 7.71 mg/dL (0.0-4.40); Cholesterol 262 mg/dL (0-200); HDL Cholesterol 34 mg/dL (60-100); Triglycerides 503 mg/dL (0-150)
[2022-08-06 06:06] LABS: Alanine Aminotransferase 9 U/L (0-33); Albumin Level 3.5 g/dL (3.5-5.2); Alkaline Phosphatase 148 U/L (35-105); Anion Gap 17.3 (5-19); Aspartate Amino Transferase 9 U/L (0-32); Blood Urea Nitrogen 26 mg/dL (6-20); Calcium 8.9 mg/dL (8.5-10.5); Carbon Dioxide 21 mmol/L (22-29); Chloride 103 mmol/L (98-107); Globulin 2.9 g/dL (1.3-4.6); Glomerular Filtration Rate 29.1 mL/min (90-130); Glucose 167 mg/dL (65-115); Osmolality Calculated 293 mOsm/kg (285-295); Potassium 4.3 mmol/L (3.5-5.1); Sodium 137 mmol/L (136-145); Total Bilirubin 0.2 mg/dL (0.15-1.2); Total Protein 6.4 g/dL (6.6-8.7)
[2022-08-06 06:27] LABS: LDL Cholesterol Direct 148 mg/dL (0-100)
[2022-08-06] MEDS: oxyCODONE-APAP 5-325 mg Tablet 1 TAB PO (06:43)
[2022-08-06 06:52] LABS: Glucose Point of Care 190 mg/dL (70-110)
--- NOTE | 2022-08-06 08:31 | PC.PHAR ---
pt states she takes care of her own medications-ext med history shows metoprolol succinate 25mg last filled 06/27/22 90d/s for 25mg daily-pt states been taking 25mg bid-another rx written 04/10/22 50mg bid-pt states the nurses put her meds in the [facility] rn medsurg looked in [place] no meds-pt states she uses levemir 40-50 units daily ext med history shows last filled 40 units bid filled 06/27/22-pt states still taking eliquis 2.5mg bid filled 06/12/22 30d/s-pt states she still has ambien 10mg hs ext med shows last filled 06/12/22 30d/s-notes are made in the pharmacy comments
[2022-08-06] MEDS: ipratropium-albuterol 3 mL Neb INHALATION (08:38)
--- NOTE | 2022-08-06 10:18 | P.PN_ITS ---
Subjective Subjective: Patient lives alone, did well with PT however her balance is off, she is at risk of recurrent falls because of neuropathy as well She has not allowed me to get in touch with the family She is willing to go to rehab Vitals/I&O/Wt Last Vital Signs Temp 97.7 F 08/06/22 08:27 Pulse 60 08/06/22 08:43 Resp 18 08/06/22 08:43 BP 92/50 08/06/22 08:27 Pulse Ox 96 08/06/22 08:43 O2 Del Method 08/06/22 08:43 08/05/22 08/06/22 08/06/22 22:59 06:59 14:59 Intake Total 200 / 200 0 / 0 Output Total 400 / 400 Balance -200 / -200 0 / 0 Weight last 48 hrs Weight 79.379 kg Weight 77.111 kg Physical Exam Narrative: Awake and alert Pleasant and cooperative Right-sided facial droop is chronic as per the patient Able to move her extremities Ataxia Neuropathy of legs Right toe amputation No audible stridor or wheezing Currently doing well on room air S1, S2 Looks dehydrated Unkept appearance Data 08/05/22 16:57 08/06/22 05:20 A&P Assessment and plan (1) Stroke: (2) Elevated troponin: (3) Weakness: (4) Pica in adults: (5) Ptosis of eyelid, left: (6) Current every day smoker: (7) Hoarseness: (8) Chronic kidney disease, stage 3b: (9) Diabetes mellitus type 2, insulin dependent: (10) Hypertension: (11) Diabetic neuropathy: Plan Acute infarct right occipital lobe Ataxia Patient has diabetic neuropathy She will qualify for rehab Speech therapy recommended level 5 dysphagia diet PT recommended rehab Occupational Therapy working with her now Poorly controlled diabetes, dyslipidemia and hypertension Active smoker Patient is stating she was in [facility] and she was recommended bronchoscopy, will request records, She is endorsing fever, shortness of breath and chest pain, troponins are elevated, we will follow-up with echo to see if there is any wall motion abnormality, currently chest pain-free hemodynamically stable, Significant proteinuria Labs reviewed showing drop in hemoglobin requested H&H, repeating labs to rule out lab better Abnormal lipid panel triglyceride 503 cholesterol 262, urinalysis showing 3+ proteinuria with pyuria Carotid Doppler did not show significant stenosis Allow permissive hypertension until she is discharged from the hospital Add insulin for diabetes Plan is to discharge her to rehab once accepted associate manager updated Request records from [facility] Currently doing well on room air Hemodynamically stable Patient takes Eliquis 2.5 mg twice daily for chronic kidney disease stage III for A-fib, I do believe she will qualify for therapeutic dose creatinine function has slightly worsened because of dehydration, I would hydrate her today for next 10 hours Attestations Medical Necessity Statement*: needs rehab Coding Level of Care Code 64911 Diagnoses Stroke I63.9 Elevated troponin R77.8 Weakness R53.1 Pica in adults F50.89 Ptosis of eyelid, left H02.402 Current every day smoker F17.200 Hoarseness R49.0 Chronic kidney disease, stage 3b N18.32 Diabetes mellitus type 2, insulin dependent E11.9; Z79.4 Hypertension I10 Diabetic neuropathy E11.40
[2022-08-06] MEDS: gabapentin 300 mg Capsule PO ×3 (10:40→21:29)
[2022-08-06] MEDS: duloxetine 20 mg Capsule PO ×2 (10:40→18:20)
[2022-08-06] MEDS: insulin lispro 100 unit/1 mL SUBCUT ×4 (10:40→22:01)
[2022-08-06] MEDS: famotidine 20 mg Tablet PO ×2 (10:41→18:20)
[2022-08-06] MEDS: aspirin 81 mg EC Tablet PO (10:41)
[2022-08-06] MEDS: apixaban 5 mg Tablet 2.5 MG PO ×2 (10:41→18:19)
[2022-08-06 10:56] LABS: Hematocrit 25.8 % (37.0-47.0); Hemoglobin 7.1 g/dL (11.5-15.3)
[2022-08-06] MEDS: insulin glargine 100 units/1 mL 40 UNIT SUBCUT (11:27)
[2022-08-06 11:30] LABS: Glucose Point of Care 184 mg/dL (70-110)
[2022-08-06 16:41] LABS: Glucose Point of Care 141 mg/dL (70-110)
[2022-08-06 21:22] LABS: Glucose Point of Care 147 mg/dL (70-110)
[2022-08-06] MEDS: zolpidem 5 mg Tablet 10 MG PO (21:29)
[2022-08-06] MEDS: atorvastatin 40 mg Tablet PO (21:30)
--- NOTE | 2022-08-06 22:03 | ECG_ITS ---
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 Measurements Intervals Menan Rate: 71 P: 49 WI: 169 QRS: 31 QRSD: 100 T: 6 QT: 377 QTc: 410 Interpretive Statements SINUS RHYTHM Compared to ECG 08/06/2022 04:11:03 Sinus bradycardia no longer present T-wave abnormality no longer present Electronically Signed On 08-07-2022 0:13:48 COMMUNITY AIDE by Alexus Bojorquez M.D. [id number]
--- NOTE | 2022-08-06 22:47 | PC.NURSE ---
Upon 22:00 rounding the pt tated I am glad that you came in, my chest is starting to hurt This nurse obtained an Ekg on the pt and immediately sent the report to Doctor Parker. I spoke with Parker, she reviewed the EKG and placed new orders. This Nurse along with the charge nurse performed a neuro check on the patient. All checks were baseline of initial assessment. The patient without issues performed bilateral heel to ibarra and finger to nose test. She knows where she is, what day it is, why she is in the hospital and recognizes staff . 2L oxygen applied for comfort due to pt report of shortness of breath, She then requested her oxygen to be raised to 3L even though SPO2 remaining within normal limits.
[2022-08-06 23:12] LABS: Troponin(5th) Baseline 71 ng/L (0-10)
--- NOTE | 2022-08-06 23:40 | USCV_ITS ---
Connie Costello Age: 57 Gender: F : 1965 Exam Date: 08/06/2022 03:01 Ordering Phys: Rosette Canales MD Technologist: REID [place] [facility] [place]: recent multiple seizures, IDDM x 8 years, long- term smoker, continues smoking. hx CAD s/p cardiac stenting 2 months ago. BP: 103 / 57 HR: 61 Rhythm: Sinus Technical Quality: Adequate MEASUREMENTS (Male / Female) Normal Values 2D ECHO LV Diastolic Diameter PLAX 4.2 cm 4.2 - 5.9 / 3.9 - 5.3 cm LV Systolic Diameter PLAX 3.0 cm IVS Diastolic Thickness 1.6 cm 0.6 - 1.0 / 0.6 - 0.9 cm IVS Systolic Thickness 1.7 cm LVPW Diastolic Thickness 1.5 cm 0.6 - 1.0 / 0.6 - 0.9 cm LVPW Systolic Thickness 1.7 cm LVOT Diameter 2.2 cm LV Ejection Fraction 2D Teich 55.6 % LV Ejection Fraction MOD 2C 49.6 % LV Ejection Fraction 2C AL 49.7 % LA Diameter 4.0 cm LA Width 3.9 cm LA Height 6.4 cm RA Width 3.9 cm RA Height 5.7 cm Aorta at Sinotubular Diameter 2.7 cm IVC Diameter 2.2 cm M-MODE Aortic Annulus Diameter 3.2 cm LA Ao Ratio MM 1.3 MV E Point Septal Separation 0.6 cm DOPPLER AV Peak Velocity 179.0 cm/s LVOT Peak Velocity 88.0 cm/s AV Area Cont Eq vti 1.8 cm squared AV Area Cont Eq pk 1.9 cm squared MV Area PHT 3.0 cm squared Mitral E to A Ratio 0.7 MV E' Velocity 52.5 cm/s Mitral E to MV E' Ratio 13.3 Mitral E to LV E' Lateral Ratio 12.2 Mitral E to LV E' Septal Ratio 14.7 TR Peak Velocity 231.0 cm/s TR Peak Gradient 21.3 mmHg TV Peak E Velocity 50.0 cm/s Right Atrial Pressure 5.0 mmHg Pulmonary Artery Systolic Pressu 26.3 mmHg PV Peak Velocity 94.0 cm/s RV Acceleration Time 0.1 s RV Ejection Time 0.3 s RV AcT/ET 0.2 FINDINGS Left Ventricle Normal left ventricular size and systolic function, EF 60 %. Grade I/IV diastolic dysfunction (abnormal relaxation filling pattern), normal to mildly elevated filling pressures. Mild left ventricular hypertrophy. Right Ventricle The right ventricle is normal in size and function. Right Atrium The right atrium is normal in size. Left Atrium The left atrium is normal in size. Mitral Valve Mild mitral valve regurgitation. Aortic Valve Possible bicuspid aortic valve Tricuspid Valve Mild tricuspid valve regurgitation. Pulmonic Valve No gross abnormalities noted Pericardium Normal pericardium without effusion. Aorta Normal aortic annulus size. IVC Normal inferior vena cava. CONCLUSIONS Normal left ventricular size and systolic function, EF 60 %. Grade I/IV diastolic dysfunction (abnormal relaxation filling pattern), normal to mildly elevated filling pressures. Mild left ventricular hypertrophy. Possible bicuspid aortic valve. Mild aortic valve stenosis with a valve area 1.8 cm2 Mild tricuspid valve regurgitation. Estimated pulmonary artery peak systolic pressure 26 mmHg There is no pericardial effusion. There are no intracardiac masses. No similar previous studies are available for comparison Dr Alexus Bojorquez MD FACC (Electronically Signed) Final Date: 06 August 2022 13:28 S
--- NOTE | 2022-08-06 23:53 | ECG_ITS ---
[facility] Test Date: 2022-08-06 Pat Name: Connie Costello Department: Room: 255 Gender: Female Gis Software Engineer: : 1965 Requested By: Rosette Canales Order Number: [id number] Driss MD: Alexus Bojorquez M.D. Measurements Intervals [place] Rate: 80 P: 35 SD: 164 QRS: 35 QRSD: 95 T: 37 QT: 360 QTc: 416 Interpretive Statements SINUS RHYTHM MINIMAL ST DEPRESSION [0.025+ mV ST DEPRESSION] Compared to ECG 08/06/2022 22:08:54 ST (T wave) deviation now present Electronically Signed On 08-07-2022 0:14:12 TILE MACHINE OPERATOR by Alexus Bojorquez M.D. [email or web address].[id number]
[2022-08-07] VITALS (16 sets, daily range): BP systolic 142–186; BP diastolic 75–94; PULSE 69–91; RESP 14–18; TEMP 36.1–37.4; O2SAT 92–98
--- NOTE | 2022-08-07 01:07 | ECG_ITS ---
[facility] Test Date: 2022-08-07 Pat Name: Connie Costello Department: Room: 255 Gender: Female Watch Train Inspector: : 1965 Requested By: Rosette Canales Order Number: [id number] Driss MD: Rubi Wang M.D. Measurements Intervals [place] Rate: 76 P: 33 ME: 179 QRS: 37 QRSD: 93 T: 31 QT: 369 QTc: 416 Interpretive Statements SINUS RHYTHM MINIMAL ST DEPRESSION [0.025+ mV ST DEPRESSION] Compared to ECG 08/06/2022 23:53:04 No significant changes Electronically Signed On 08-08-2022 8:16:37 CONFERENCE SPECIALIST by Rubi Wang M.D. [email or web address].[email or web address]/store/[id number]
[2022-08-07 01:35] LABS: Troponin 5 2HR 64.99 ng/L (0-10)
[2022-08-07 02:19] LABS: Troponin 5 2HR Delta -6.01 ABS# (0-10)
[2022-08-07] MEDS: sodium chloride 0.9% 1,000 ML 75 ML IV (02:23)
--- NOTE | 2022-08-07 04:27 | ECG_ITS ---
[facility] Test Date: 2022-08-07 Pat Name: Connie Costello Department: Room: 255 Gender: Female Senior Research Analyst: : 1965 Requested By: Rosette Canales Order Number: [id number] Driss MD: Rubi Wang M.D. Measurements Intervals [place] Rate: 78 P: 43 NH: 166 QRS: 31 QRSD: 94 T: 29 QT: 381 QTc: 435 Interpretive Statements SINUS RHYTHM Compared to ECG 08/07/2022 01:07:25 ST (T wave) deviation no longer present Electronically Signed On 08-08-2022 8:16:19 RN URGENT CARE by Rubi Wang M.D. [email or web address] [email or web address]/store/[id number]
[2022-08-07 05:40] LABS: Troponin 5 6HR 57.64 ng/L (0-10)
[2022-08-07 06:11] LABS: Basophils % 0.5 %; Eosinophils # 0.4 10^3/uL (0.0-0.8); Eosinophils % 4.5 %; Hematocrit 25.7 % (37.0-47.0); Hemoglobin 6.9 g/dL (11.5-15.3); Lymphocytes # 2.1 10^3/uL (0.8-4.8); Lymphocytes % 26.7 %; Mean Corpuscular HGB Conc 26.8 g/dL (30.0-36.0); Mean Corpuscular Hemoglobin 20.9 pg (28.0-34.0); Mean Corpuscular Volume 77.9 fl (81-99); Mean Platelet Volume 9.7 fL (7.4-10.4); Monocytes # 0.7 10^3/uL (0.2-0.9); Monocytes % 8.1 %; Neutrophils # 4.76 10^3/uL (1.8-7.7); Neutrophils % 59.5 %; Nucleated Red Blood Cells % 0 %; Platelet Count 346 10^3/cmm (130-400); Red Cell Distribution Width 19.2 % (12.1-15.1)
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
[2022-08-07 06:28] LABS: Anion Gap 13.3 (5-19); Blood Urea Nitrogen 21 mg/dL (6-20); Calcium 8.5 mg/dL (8.5-10.5); Carbon Dioxide 21 mmol/L (22-29); Chloride 109 mmol/L (98-107); Glomerular Filtration Rate 35.9 mL/min (90-130); Glucose 108 mg/dL (65-115); Osmolality Calculated 292 mOsm/kg (285-295); Potassium 4.3 mmol/L (3.5-5.1); Sodium 139 mmol/L (136-145)
[2022-08-07 06:29] LABS: Glucose Point of Care 126 mg/dL (70-110)
[2022-08-07 06:31] LABS: Creatinine Clr Calc Pharmacy 40.8643
[2022-08-07] MEDS: gabapentin 300 mg Capsule PO ×3 (10:15→22:07)
[2022-08-07] MEDS: duloxetine 20 mg Capsule PO ×2 (10:15→18:49)
[2022-08-07] MEDS: aspirin 81 mg EC Tablet PO (10:15)
[2022-08-07] MEDS: famotidine 20 mg Tablet PO ×2 (10:15→18:49)
[2022-08-07] MEDS: insulin glargine 100 units/1 mL 40 UNIT SUBCUT (10:16)
--- NOTE | 2022-08-07 10:32 | P.PN_ITS ---
Subjective Subjective: This morning patient was complaining about the food She wants restrictive diet She cannot eat unless speech therapy advance her diet Creatinine 1.5 Hemoglobin dropped to 6.9 No active GI bleed Anemia of chronic disease Patient has received blood transfusion in the past related to chronic kidney di sease as well Troponin trending down She will get 2 unit PRBC Request FOBT She will Tylenol for headache Her chest pain is reproducible Patient is stating she is hurting all over EKG this morning is showing sinus rhythm Updated her nurse Vitals/I&O/Wt Last Vital Signs Temp 97.6 F 08/07/22 07:00 Pulse 80 08/07/22 10:12 Resp 16 08/07/22 10:12 BP 169/79 08/07/22 07:00 Pulse Ox 96 08/07/22 10:12 O2 Del Method 08/07/22 10:12 O2 Flow Rate 3 08/07/22 03:00 08/06/22 08/07/22 08/07/22 22:59 06:59 14:59 Intake Total 995 / 2071.25 120 / 120 Balance 995 / 2071.25 120 / 120 Weight last 48 hrs Weight 79.379 kg Weight 77.111 kg Physical Exam Narrative: Patient is awake and alert Euvolemic Hemodynamically stable Currently on room air Right-sided facial droop is chronic Doing well on room air Agitated because of hospital food Abdomen soft Otherwise cooperative and pleasant EOMI, PERRLA GCS 15 AOx3 Data 08/07/22 06:02 08/07/22 06:02 A&P Assessment and plan (1) Elevated troponin: (2) Stroke: (3) Weakness: (4) Chest pain: (5) Ptosis of eyelid, left: (6) Pica in adults: (7) Anemia: (8) Chronic pain: (9) Depression: (10) Chronic kidney disease, stage 3b: (11) Diabetic neuropathy: (12) Diabetes mellitus type 2, insulin dependent: (13) Hypertension: Plan Acute stroke Patient has qualify for rehab Uncontrolled diabetes Dyslipidemia Patient is on dysphagia diet, she is not happy with her current diet I have told her that she will see speech therapist today and then we can decide about advancing her diet Continue PT/OT/ST Acute on chronic normocytic anemia Carries history of iron deficiency and low folic acid Check iron panel and folic acid Transfuse 2 units PRBC No active GI bleed Hemoglobin 6.9 Hemodynamically stable Check FOBT Hold Eliquis History of paroxysmal A-fib, she was taking Eliquis which she is currently on hold because of low hemoglobin however no active GI bleed noted Noncompliant, patient is asking to eat regular food she does have significant dyslipidemia and poorly controlled type 2 diabetes Chronic pain: She is hurting all over complaining of chest pain which is reproducible, troponin negative EKG showing sinus rhythm I have given her Tylenol Noncardiac chest pain Full code Dysphagia diet DVT prophylaxis SCDs Attestations Medical Necessity Statement*: Awaiting placement Coding Level of Care Code 49771 Diagnoses Elevated troponin R77.8 Stroke I63.9 Weakness R53.1 Chest pain R07.9 Ptosis of eyelid, left H02.402 Pica in adults F50.89 Anemia D64.9 Chronic pain G89.29 Depression F32.A Chronic kidney disease, stage 3b N18.32 Diabetic neuropathy E11.40 Diabetes mellitus type 2, insulin dependent E11.9; Z79.4 Hypertension I10
[2022-08-07] MEDS: sodium chloride 0.9% 50 ML IV ×2 (10:51→15:46)
[2022-08-07 11:04] LABS: Iron 11 ug/dL (37-145); Percent Saturation 3.8 % (20-50); Total Iron Binding Capacity 286 mcg/dl; Unsaturated Iron Binding 275 ug/dL (112-347)
[2022-08-07 11:21] LABS: Folate Level 8.9 ng/mL (4.8-37.3)
[2022-08-07 11:32] LABS: Glucose Point of Care 180 mg/dL (70-110)
--- NOTE | 2022-08-07 12:34 | PC.NURSE ---
PT HAS A CHRONIC LEFT FACIAL DROOP. IT WAS NOT VISIBLE THIS AM. SHE GETS UPSET AND IT IS MORE PROMINENT. PT GOT INTO IT WITH HER MOTHER. NOW VISIBLE.
[2022-08-07] MEDS: oxyCODONE-APAP 5-325 mg Tablet 1 TAB PO (12:38)
[2022-08-07] MEDS: insulin lispro 100 unit/1 mL SUBCUT ×3 (12:39→22:14)
[2022-08-07 12:40] LABS: PROTEIN, TOTAL 5.7 g/dL (6.1-8.1)
[2022-08-07 13:39] LABS: COMPLEMENT COMPONENT C3C 204 mg/dL (83-193); COMPLEMENT COMPONENT C4C 42 mg/dL (15-57)
[2022-08-07] MEDS: ALPRAZolam 0.5 mg Tablet PO (15:01)
[2022-08-07 15:11] LABS: CENTROMERE B ANTIBODY <1.0 NEG AI (<1.0 NEG); JO-1 ANTIBODY <1.0 NEG AI (<1.0 NEG); RNP ANTIBODY <1.0 NEG AI (<1.0 NEG); SCL-70 ANTIBODY <1.0 NEG AI (<1.0 NEG); SJOGREN'S ANTIBODY (SS-A) <1.0 NEG AI (<1.0 NEG); SM ANTIBODY <1.0 NEG AI (<1.0 NEG); SS-B <1.0 NEG AI (<1.0 NEG)
[2022-08-07 15:30] LABS: ALBUMIN 2.9 g/dL (3.8-4.8); ALPHA 1 GLOBULIN 0.4 g/dL (0.2-0.3); BETA 1 GLOBULIN 0.5 g/dL (0.4-0.6); BETA 2 GLOBULIN 0.3 g/dL (0.2-0.5); GAMMA GLOBULIN 0.6 g/dL (0.8-1.7)
[2022-08-07 16:29] LABS: Glucose Point of Care 158 mg/dL (70-110)
[2022-08-07] MEDS: zolpidem 5 mg Tablet 10 MG PO (22:07)
[2022-08-07] MEDS: atorvastatin 40 mg Tablet PO (22:07)
[2022-08-07 22:11] LABS: Glucose Point of Care 205 mg/dL (70-110)
--- NOTE | 2022-08-07 23:05 | PC.NURSE ---
pt does not have IV access, pt is schedule to receive 1unit of blood, multiple nurses attemptd to start another IV without success. This nurse notified Dr. Canales, no new orders at this time.
[2022-08-08] VITALS (12 sets, daily range): BP systolic 145–186; BP diastolic 69–95; PULSE 72–89; RESP 17–19; TEMP 36.4–37.4; O2SAT 91–96
[2022-08-08 07:15] LABS: Basophils % 0.5 %; Eosinophils # 0.4 10^3/uL (0.0-0.8); Eosinophils % 4.6 %; Hematocrit 34.5 % (37.0-47.0); Lymphocytes # 2.4 10^3/uL (0.8-4.8); Mean Corpuscular HGB Conc 28.7 g/dL (30.0-36.0); Mean Corpuscular Hemoglobin 21.9 pg (28.0-34.0); Mean Corpuscular Volume 76.2 fl (81-99); Mean Platelet Volume 10.3 fL (7.4-10.4); Monocytes # 0.6 10^3/uL (0.2-0.9); Monocytes % 7.2 %; Neutrophils # 4.52 10^3/uL (1.8-7.7); Neutrophils % 56.8 %; Nucleated Red Blood Cells % 0 %; Platelet Count 159 10^3/cmm (130-400); Red Blood Count 4.53 10^6/uL (4.1-5.3); Red Cell Distribution Width 18.6 % (12.1-15.1)
--- NOTE | 2022-08-08 07:25 | PC.NURSE ---
Bedside report received from Kasia CHUNG at this time.
[2022-08-08 07:30] LABS: Hemoglobin 9.9 g/dL (11.5-15.3)
[2022-08-08 07:33] LABS: Blood Urea Nitrogen 16 mg/dL (6-20); Calcium 8.6 mg/dL (8.5-10.5); Carbon Dioxide 19 mmol/L (22-29); Chloride 108 mmol/L (98-107); Glomerular Filtration Rate 38.9 mL/min (90-130); Glucose 148 mg/dL (65-115); Osmolality Calculated 294 mOsm/kg (285-295); Sodium 140 mmol/L (136-145)
[2022-08-08 07:34] LABS: Anion Gap 17.8 (5-19); Potassium 4.8 mmol/L (3.5-5.1)
[2022-08-08 07:47] LABS: Glucose Point of Care 160 mg/dL (70-110)
[2022-08-08] MEDS: duloxetine 20 mg Capsule PO ×2 (08:56→17:56)
[2022-08-08] MEDS: gabapentin 300 mg Capsule PO ×3 (08:57→20:48)
[2022-08-08] MEDS: amlodipine 10 mg Tablet PO (08:57)
[2022-08-08] MEDS: aspirin 81 mg EC Tablet PO (08:57)
[2022-08-08] MEDS: famotidine 20 mg Tablet PO ×2 (08:57→17:56)
[2022-08-08] MEDS: iron polysaccharide complex 150 mg Capsule PO (08:57)
[2022-08-08] MEDS: ALPRAZolam 0.5 mg Tablet PO ×2 (09:00→20:47)
[2022-08-08] MEDS: oxyCODONE-APAP 5-325 mg Tablet 1 TAB PO ×2 (09:00→21:55)
[2022-08-08] MEDS: insulin lispro 100 unit/1 mL SUBCUT ×3 (09:01→21:55)
[2022-08-08] MEDS: insulin glargine 100 units/1 mL 40 UNIT SUBCUT (09:01)
[2022-08-08] MEDS: metoprolol tartrate 25 mg Tablet 12.5 MG PO ×2 (09:01→20:49)
--- NOTE | 2022-08-08 10:22 | P.PN_ITS ---
Subjective Subjective: Patient has refused second blood transfusion however this hemoglobin is 9.9 this morning Hemodynamically stable Patient is stating that she is afraid to go home, with her stroke she might not be able to do well, She was asking nurses to let her go to eat [employer] She is very noncompliant I did discuss disposition plan with her, she is afraid to return home and adamant about rehab/retirement placement Continue home prazosin, Cymbalta, she has been given Xanax Vitals/I&O/Wt Last Vital Signs Temp 98.8 F 08/08/22 07:00 Pulse 89 08/08/22 08:00 Resp 18 08/08/22 09:00 BP 186/95 08/08/22 07:00 Pulse Ox 95 08/08/22 08:00 O2 Del Method 08/08/22 08:00 O2 Flow Rate 3 08/07/22 20:00 08/07/22 08/08/22 08/08/22 22:59 06:59 14:59 Intake Total 340 / 1050 Balance 340 / 1050 Physical Exam 2 Narrative: Awake and alert Facial palsy is chronic No new focal deficit Hemodynamically stable Abdomen soft GCS 15 S1, S2 Appears anxious Doing well on room air Looks euvolemic Data 08/08/22 06:45 08/08/22 06:45 A&P Assessment and plan (1) Stroke: (2) Weakness: (3) Ptosis of eyelid, left: (4) Pica in adults: (5) Low folic acid: (6) Anemia: (7) Chronic pain: (8) Depression: (9) Anxiety: (10) Chronic kidney disease, stage 3b: (11) Diabetic neuropathy: (12) Hypertension: Plan Acute stroke Patient is doing well Hemodynamically stable Noncompliant Patient wants to go to rehab/retirement Acute on chronic microcytic anemia Iron deficient Anemia of chronic disease Status post 2 unit PRBC Continue iron supplement every other day No active GI bleed Chronic kidney disease at baseline Patient is very noncompliant asking nurses to let her go to eat [employer] Anxiety/depression: She gets Cymbalta and prazosin, I have added Xanax yesterday, added escitalopram Full code Dysphagia diet DVT prophylaxis on board Patient lives alone, she is afraid to return home with her recent stroke, we will follow-up with PT evaluation manager collection updated Attestations Medical Necessity Statement*: Continue medical management Coding Level of Care Code 43102 Diagnoses Stroke I63.9 Weakness R53.1 Ptosis of eyelid, left H02.402 Pica in adults F50.89 Low folic acid E53.8 Anemia D64.9 Chronic pain G89.29 Depression F32.A Anxiety F41.9 Chronic kidney disease, stage 3b N18.32 Diabetic neuropathy E11.40 Hypertension I10
[2022-08-08 11:59] LABS: Glucose Point of Care 158 mg/dL (70-110)
--- NOTE | 2022-08-08 13:00 | PC.SOCIAL ---
Pg 2 IMM Explained to pt Pg 2 IMM. No questions voiced. Provided pt a copy. Initialed, dated, & timed a copy & placed in chart.
[2022-08-08 14:20] LABS: COMPLEMENT, TOTAL (CH50) >60 U/mL (31-60)
[2022-08-08] MEDS: ondansetron 2 mg/ML SDV 2 mL 4 MG IVP (15:30)
[2022-08-08 15:59] LABS: ANA SCREEN, IFA NEGATIVE (NEGATIVE)
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
[2022-08-08 17:03] LABS: Glucose Point of Care 135 mg/dL (70-110)
[2022-08-08] MEDS: hyDRALAzine 25 mg Tablet PO (17:56)
[2022-08-08 18:34] LABS: THYROID PEROXIDASE ANTIBODIES 81 IU/mL (<9)
[2022-08-08] MEDS: prazosin 1 mg Capsule PO (20:47)
[2022-08-08] MEDS: zolpidem 5 mg Tablet 10 MG PO (20:48)
[2022-08-08] MEDS: atorvastatin 40 mg Tablet PO (20:48)
[2022-08-08 21:28] LABS: Glucose Point of Care 209 mg/dL (70-110)
[2022-08-08] MEDS: lanolin oint 7 gm 1 APPLIC TOPICAL (23:50)
[2022-08-09] VITALS (14 sets, daily range): BP systolic 127–162; BP diastolic 57–78; PULSE 61–81; RESP 15–18; TEMP 36.4–36.7; O2SAT 90–95; BMI 32.0
[2022-08-09] MEDS: oxyCODONE-APAP 5-325 mg Tablet 1 TAB PO ×4 (04:05→22:20)
[2022-08-09 05:34] LABS: Hematocrit 31.8 % (37.0-47.0); Hemoglobin 8.8 g/dL (11.5-15.3)
[2022-08-09 06:45] LABS: Glucose Point of Care 184 mg/dL (70-110)
[2022-08-09] MEDS: insulin glargine 100 units/1 mL 40 UNIT SUBCUT (08:54)
[2022-08-09] MEDS: metoprolol tartrate 25 mg Tablet 12.5 MG PO ×2 (08:54→21:24)
[2022-08-09] MEDS: hyDRALAzine 25 mg Tablet PO ×2 (08:54→18:20)
[2022-08-09] MEDS: insulin lispro 100 unit/1 mL SUBCUT ×4 (08:54→20:27)
[2022-08-09] MEDS: iron polysaccharide complex 150 mg Capsule PO (08:55)
[2022-08-09] MEDS: famotidine 20 mg Tablet PO ×2 (08:55→18:19)
[2022-08-09] MEDS: aspirin 81 mg EC Tablet PO (08:55)
[2022-08-09] MEDS: gabapentin 300 mg Capsule PO ×3 (08:56→20:26)
[2022-08-09] MEDS: iron sucrose 500 MG in sodium chloride 0.9% 250 ML 68.75 MG IV (08:56)
[2022-08-09] MEDS: amlodipine 10 mg Tablet PO (08:56)
[2022-08-09] MEDS: duloxetine 20 mg Capsule PO ×2 (08:56→18:19)
[2022-08-09] MEDS: ondansetron 2 mg/ML SDV 2 mL 4 MG IVP (10:14)
--- NOTE | 2022-08-09 10:35 | PM.PN ---
Subjective Subjective: No overnight events We did go over anxiolytics and antidepressant medications today Patient will be transferred to neuropsychiatric unit, family updated She has allowed me to speak with her son Appreciate Dr. Sierra recommendations and consultation Vitals/I&O/Wt Last Vital Signs Temp 98.0 F 08/09/22 07:00 Pulse 79 08/09/22 07:55 Resp 18 08/09/22 10:12 BP 145/67 08/09/22 07:00 Pulse Ox 92 08/09/22 07:55 O2 Del Method 08/09/22 07:55 O2 Flow Rate 3 08/08/22 20:00 08/08/22 08/09/22 08/09/22 22:59 06:59 14:59 Intake Total 720 / 1200 1120 / 2320 360 / 360 Balance 720 / 1200 1120 / 2320 360 / 360 Physical Exam Narrative: Awake and alert Anxious appearing Very impulsive Right-sided facial droop is chronic She is able to ambulate on her own Hemodynamically stable Awake and alert alert pleasant and cooperative S1, S2 No audible stridor or wheezing Abdomen soft Data 08/09/22 04:19 08/08/22 06:45 A&P Assessment and plan (1) Stroke: (2) Weakness: (3) Ptosis of eyelid, left: (4) Pica in adults: (5) Low folic acid: (6) Anemia: (7) Diabetic neuropathy: (8) Diabetes mellitus type 2, insulin dependent: (9) Hypertension: (10) PTSD (post-traumatic stress disorder): (11) DVT (deep venous thrombosis): Plan Acute stroke Speech therapy recommended dysphagia diet Patient did very well with physical therapy Mental capacity is compromised, requested Dr. Sierra consultation Patient will be transferred to neuropsychiatric unit for history of PTSD and anxiety Patient made a statement that she might go home and overdose on her anxiety medications She is not a 96-hour hold Dr. Sierra agreed with transfer to neuropsychiatric unit Poorly controlled type 2 diabetes and dyslipidemia She will need optimization of her medication at the time of discharge History of DVT: She has been taking Eliquis which I have put on hold secondary to anemia Acute on chronic microcytic anemia related to iron deficiency and chronic kidney disease Status post 2 unit PRBC Holding Eliquis for now No active GI bleed she has been hemodynamically stable Anxiolytics and antidepressants to be tailored as per psychiatrist Family updated Dysphagia diet Severe iron deficiency: She will receive 1 bag of iron IV today Attestations Medical Necessity Statement*: Transfer to neuropsychiatric unit Coding Level of Care Code 53634 Diagnoses Stroke I63.9 Weakness R53.1 Ptosis of eyelid, left H02.402 Pica in adults F50.89 Low folic acid E53.8 Anemia D64.9 Diabetic neuropathy E11.40 Diabetes mellitus type 2, insulin dependent E11.9; Z79.4 Hypertension I10 PTSD (post-traumatic stress disorder) F43.10 DVT (deep venous thrombosis) I82.409
[2022-08-09 11:06] LABS: Glucose Point of Care 142 mg/dL (70-110)
[2022-08-09 16:35] LABS: DNA AB (DS) CRITHIDIA,IFA NEGATIVE (NEGATIVE)
[2022-08-09 17:55] LABS: Glucose Point of Care 196 mg/dL (70-110)
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
[2022-08-09] MEDS: nicotine 21 mg Patch 1 PATCH TRANSDERMA (18:19)
[2022-08-09] MEDS: ferrous sulfate EC 325 mg Tablet PO (18:19)
[2022-08-09] MEDS: citalopram 20 mg Tablet 10 MG PO (18:20)
[2022-08-09 19:46] LABS: Glucose Point of Care 167 mg/dL (70-110)
--- NOTE | 2022-08-09 19:59 | P.NPUPN_ITS ---
Subjective NPU Subjective: Patient presented today reporting she feels about the same. We discussed Dr villa returning tomorrow and that he would be the person working on discharge possibilities. She reports she does not feel the celexa has really helped. but we discussed the time necessary for medications to be effective. Mental Status Exam MSE Comments: This is an overweight, white female in hospital bed with limited grooming and adequate eye contact. No abnormal movements except for mild psychomotor agitation. Cooperative with exam in mild to moderate distress. Speech was slightly increased volume and normal rate. Mood described as tearful, affect is anxious and tearful. Thought process, organized. Thought content: patient denies suicidal or homicidal ideation, no delusions reported or noted and denies any auditory or visual hallucinations. Attention and concentration are intact and memory appeared reliable but none were formally tested. She is alert and oriented times three. Insight and judgment are limited to impaired. Impulse control is limited to impaired. Vitals/I&O/Wt Last Vital Signs Temp 98.0 F 08/09/22 21:10 Pulse 81 08/09/22 21:10 Resp 18 08/09/22 21:10 BP 127/71 08/09/22 21:10 Pulse Ox 90 08/09/22 21:10 O2 Del Method 08/09/22 21:10 O2 Flow Rate 0 08/09/22 21:10 Weight last 48 hrs Weight 81.76 kg Weight 81.76 kg Weight 79.379 kg Data NPU 08/10/22 09:20 08/10/22 09:20 A&P Assessment and plan (1) PTSD (post-traumatic stress disorder): (2) Major depressive disorder: (3) Stroke: Plan This is a 57 year old woman with a history of trauma, depression, PTSD and ge netic loading for addiction and lethality issues who presents reporting she is unable to return to her home due to safety reasons and is open to going to a usp for the time being and open to changes in her medications at this time. 1. Continue current medications. Including the Celexa 20 mg p.o. daily just initiated. 2. Admit to Neuropsych Unit once medically cleared. 3. Continue to follow. Involuntary Hold Information 96 Hour Hold: 96 Hour Involuntary Admission: No Attestations NPU Medical Necessity Statement*: Inpatient hospitalization is medically necessary and the clinically appropriate intervention at this time. We will monitor medications and make changes as indicated. Likely length of stay is three to five days. Coding Level of Care Code Acute Code for [facility] Diagnoses PTSD (post-traumatic stress disorder) F43.10 Major depressive disorder F32.9 Stroke I63.9
[2022-08-09] MEDS: montelukast sodium 10 mg Tablet PO (20:25)
[2022-08-09] MEDS: cloNIDine 0.1 mg Tablet PO (20:25)
[2022-08-09] MEDS: atorvastatin 40 mg Tablet PO (20:26)
[2022-08-09] MEDS: prazosin 1 mg Capsule PO (20:26)
[2022-08-09] MEDS: zolpidem 5 mg Tablet 10 MG PO (20:27)
--- NOTE | 2022-08-09 21:13 | PC.NURSE ---
PT REQUESTED MEDICATION FOR INSOMNIA. AMBIEN 10 MG WAS GIVEN ORDERED. SEE MAR FOR DETAILS.
[2022-08-09] MEDS: promethazine-dm 6.25-15 mg/5 mL SYRUP (5 mL UD) PO (22:19)
[2022-08-10] VITALS (8 sets, daily range): BP systolic 116–127; BP diastolic 66–71; PULSE 68–80; RESP 16–22; TEMP 36.4–36.7; O2SAT 91–95; BMI 32.9
[2022-08-10] MEDS: budesonide 0.5 mg/2 mL Neb INHALATION (07:38)
[2022-08-10 07:49] LABS: Glucose Point of Care 147 mg/dL (70-110)
[2022-08-10 09:43] LABS: Basophils # 0.1 10^3/uL (0.0-0.1); Basophils % 0.7 %; Eosinophils # 0.4 10^3/uL (0.0-0.8); Eosinophils % 5.3 %; Hemoglobin 8.6 g/dL (11.5-15.3); Lymphocytes # 1.8 10^3/uL (0.8-4.8); Lymphocytes % 22.2 %; Mean Corpuscular HGB Conc 26.9 g/dL (30.0-36.0); Mean Corpuscular Hemoglobin 21.6 pg (28.0-34.0); Mean Corpuscular Volume 80.2 fl (81-99); Mean Platelet Volume 10.4 fL (7.4-10.4); Monocytes # 0.7 10^3/uL (0.2-0.9); Neutrophils # 5.02 10^3/uL (1.8-7.7); Neutrophils % 61.8 %; Nucleated Red Blood Cells % 0 %; Platelet Count 323 10^3/cmm (130-400); Red Blood Count 3.99 10^6/uL (4.1-5.3); Red Cell Distribution Width 19.9 % (12.1-15.1); White Blood Count 8.1 10^3/uL (4.0-10.0)
[2022-08-10 10:07] LABS: Anion Gap 16.5 (5-19); Blood Urea Nitrogen 17 mg/dL (6-20); Calcium 9.6 mg/dL (8.5-10.5); Carbon Dioxide 23 mmol/L (22-29); Chloride 101 mmol/L (98-107); Glomerular Filtration Rate 33.3 mL/min (90-130); Glucose 202 mg/dL (65-115); Osmolality Calculated 289 mOsm/kg (285-295); Potassium 4.5 mmol/L (3.5-5.1); Sodium 136 mmol/L (136-145)
[2022-08-10] MEDS: insulin lispro 100 unit/1 mL SUBCUT ×4 (10:07→21:35)
[2022-08-10] MEDS: insulin glargine 100 units/1 mL 40 UNIT SUBCUT (10:07)
[2022-08-10] MEDS: duloxetine 20 mg Capsule PO (10:08)
[2022-08-10] MEDS: metoprolol tartrate 25 mg Tablet 12.5 MG PO ×2 (10:08→21:37)
[2022-08-10] MEDS: famotidine 20 mg Tablet PO ×2 (10:08→17:42)
[2022-08-10] MEDS: aspirin 81 mg EC Tablet PO (10:09)
[2022-08-10] MEDS: ferrous sulfate EC 325 mg Tablet PO ×2 (10:09→17:41)
[2022-08-10] MEDS: citalopram 20 mg Tablet 10 MG PO (10:09)
[2022-08-10] MEDS: gabapentin 300 mg Capsule PO ×3 (10:09→21:38)
[2022-08-10] MEDS: cloNIDine 0.1 mg Tablet PO ×3 (10:10→21:36)
[2022-08-10] MEDS: amlodipine 10 mg Tablet PO (10:10)
[2022-08-10] MEDS: hyDRALAzine 25 mg Tablet PO ×2 (10:10→17:41)
[2022-08-10] MEDS: cholecalciferol (vitamin D3) 5,000 unit Tablet 5000 UNIT PO (10:11)
[2022-08-10] MEDS: oxyCODONE-APAP 5-325 mg Tablet 1 TAB PO (10:24)
[2022-08-10] MEDS: ALPRAZolam 0.5 mg Tablet PO (11:05)
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
[2022-08-10 12:34] LABS: Glucose Point of Care 201 mg/dL (70-110)
[2022-08-10] MEDS: iron polysaccharide complex 150 mg Capsule PO (12:42)
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
[2022-08-10] MEDS: hyDROXYzine 25 mg Capsule 50 MG PO ×3 (15:25→21:49)
[2022-08-10 17:25] LABS: Glucose Point of Care 158 mg/dL (70-110)
[2022-08-10 21:22] LABS: Glucose Point of Care 184 mg/dL (70-110)
[2022-08-10] MEDS: atorvastatin 40 mg Tablet PO (21:37)
[2022-08-10] MEDS: prazosin 1 mg Capsule 2 MG PO (21:37)
[2022-08-10] MEDS: montelukast sodium 10 mg Tablet PO (21:37)
[2022-08-10] MEDS: zolpidem 5 mg Tablet 10 MG PO (21:44)
--- NOTE | 2022-08-10 23:21 | PC.NURSE ---
PRN vistaril given for anxiety per pt request.
[2022-08-11] VITALS (10 sets, daily range): BP systolic 85–124; BP diastolic 46–68; PULSE 61–81; RESP 16–22; TEMP 36.3–36.9; O2SAT 90–96
[2022-08-11] MEDS: duloxetine 20 mg Capsule 60 MG PO (05:57)
[2022-08-11 08:14] LABS: Basophils # 0.1 10^3/uL (0.0-0.1); Basophils % 0.5 %; Eosinophils # 0.4 10^3/uL (0.0-0.8); Eosinophils % 4.1 %; Hematocrit 27.6 % (37.0-47.0); Hemoglobin 7.6 g/dL (11.5-15.3); Lymphocytes # 2.3 10^3/uL (0.8-4.8); Lymphocytes % 22.9 %; Mean Corpuscular HGB Conc 27.5 g/dL (30.0-36.0); Mean Corpuscular Hemoglobin 21.8 pg (28.0-34.0); Mean Corpuscular Volume 79.3 fl (81-99); Mean Platelet Volume 9.8 fL (7.4-10.4); Monocytes # 0.9 10^3/uL (0.2-0.9); Monocytes % 9.1 %; Neutrophils # 6.19 10^3/uL (1.8-7.7); Neutrophils % 62.7 %; Nucleated Red Blood Cells % 0 %; Platelet Count 290 10^3/cmm (130-400); Red Blood Count 3.48 10^6/uL (4.1-5.3); Red Cell Distribution Width 20.4 % (12.1-15.1); White Blood Count 9.9 10^3/uL (4.0-10.0)
--- NOTE | 2022-08-11 08:20 | PC.NURSE ---
Addendum entered by Ita Sierra RN 08/11/22 11:08: Pt reviewed with and a hospitalist consult was made. Hospitalist came to see pt; said they are wanting to have the patient get scoped later today and wanted the pt to be NPO. Pt was informed of this and all beverages were removed from the pt's bedside stand. The patient was informed she could rinse her mouth with water, but needed to spit it out and not swallow any. Discussed potential impact of non-compliance, including potential aspiration during the procedures. Pt verbalized her understanding. Original Note: MD notified of pt's positive occult blood test from 08/10
[2022-08-11 08:21] LABS: Glucose Point of Care 179 mg/dL (70-110)
[2022-08-11] MEDS: oxyCODONE-APAP 5-325 mg Tablet 1 TAB PO ×2 (08:30→20:17)
[2022-08-11] MEDS: insulin lispro 100 unit/1 mL SUBCUT ×4 (08:30→21:02)
[2022-08-11] MEDS: insulin glargine 100 units/1 mL 40 UNIT SUBCUT (08:30)
[2022-08-11] MEDS: metoprolol tartrate 25 mg Tablet 12.5 MG PO ×2 (08:31→20:17)
[2022-08-11] MEDS: aspirin 81 mg EC Tablet PO (08:31)
[2022-08-11] MEDS: amlodipine 10 mg Tablet PO (08:31)
[2022-08-11] MEDS: cholecalciferol (vitamin D3) 5,000 unit Tablet 5000 UNIT PO (08:31)
[2022-08-11] MEDS: gabapentin 300 mg Capsule PO ×3 (08:31→20:17)
[2022-08-11] MEDS: cloNIDine 0.1 mg Tablet PO ×3 (08:31→20:17)
[2022-08-11] MEDS: iron polysaccharide complex 150 mg Capsule PO (08:31)
[2022-08-11] MEDS: ferrous sulfate EC 325 mg Tablet PO ×2 (08:32→18:12)
[2022-08-11] MEDS: famotidine 20 mg Tablet PO ×2 (08:32→18:12)
[2022-08-11] MEDS: hyDRALAzine 25 mg Tablet PO ×2 (08:32→18:12)
[2022-08-11] MEDS: hyDROXYzine 25 mg Capsule 50 MG PO ×2 (10:27→18:14)
--- NOTE | 2022-08-11 10:28 | PC.NURSE ---
PRN VISTARIL 50 MG GIVEN PO PER PT REQUEST OF THE GREEN PILLS AND C/O ANXIETY.
[2022-08-11] MEDS: budesonide 0.5 mg/2 mL Neb INHALATION (10:43)
[2022-08-11] MEDS: blistex lip oint 7 gm Tube 1 APPLIC TOPICAL (11:19)
--- NOTE | 2022-08-11 12:00 | PM.PN ---
Subjective Subjective: Patient hemoglobin has dropped Positive FOBT Status post 2 unit PRBC She also received 1 bag of iron Today hemoglobin is 7.6 Patient is endorsing dark-colored stools We will touch base with Dr. Hicks, we will keep her n.p.o. last meal around 10 AM I have asked patient to stay n.p.o. Vitals/I&O/Wt Last Vital Signs Temp 98.3 F 08/11/22 06:00 Pulse 75 08/11/22 10:30 Resp 18 08/11/22 10:15 BP 113/63 08/11/22 06:00 Pulse Ox 94 08/11/22 10:15 O2 Del Method 08/11/22 10:15 O2 Flow Rate 0 08/11/22 08:19 Weight last 48 hrs Weight 81.76 kg Weight 81.76 kg Weight 79.379 kg Physical Exam Narrative: Awake and alert Patient is hemodynamically stable Soft abdomen Clinically looks euvolemic S1, S2 Edema, PERRLA GCS 15 Data 08/11/22 08:01 08/10/22 09:20 Micro: Microbiology 08/10/22 09:00 Occult Blood (FIT) - Final Stool Routine Collection A&P Assessment and plan (1) Major depressive disorder: (2) Stroke: (3) Weakness: (4) Chest pain: (5) Ptosis of eyelid, left: (6) Low folic acid: (7) Anemia: (8) Diabetic neuropathy: (9) Diabetes mellitus type 2, insulin dependent: (10) DVT (deep venous thrombosis): Plan Acute stroke Patient is doing well Patient is able to ambulate independently She has chronic left-sided facial droop Acute on chronic microcytic anemia Anemia chronic disease intermixed with iron deficiency anemia Received 1 bag of iron 2 unit PRBC Hemoglobin dropped to 10.6 Positive FOBT N.p.o. Consulted general surgery Start Protonix 40 mg IV twice daily Diabetic poorly controlled with neuropathy No acute exacerbation PTSD/depression: Patient will need to go back to neuropsychiatric unit once stable Full code N.p.o. DVT prophylaxis on hold for last 72 hours Attestations Medical Necessity Statement*: Transfer out of neuropsychiatric unit to [facility] for blood transfusion Coding Level of Care Code 98941 Diagnoses Major depressive disorder F32.9 Stroke I63.9 Weakness R53.1 Chest pain R07.9 Ptosis of eyelid, left H02.402 Low folic acid E53.8 Anemia D64.9 Diabetic neuropathy E11.40 Diabetes mellitus type 2, insulin dependent E11.9; Z79.4 DVT (deep venous thrombosis) I82.409
[2022-08-11 12:21] LABS: Glucose Point of Care 249 mg/dL (70-110)
--- NOTE | 2022-08-11 14:42 | W.PM.NPUPNS ---
Subjective NPU Subjective: Patient is a 57-year-old white female with a history of PTSD and depression admitted with complaints of auditory hallucinations and visual hallucinations. She had minimized any visual or auditory hallucinations today. She had shown a decline in her hemoglobin and hematocrit today and her occult blood in her stool was positive. She had reported complaints of dizziness. She had reported continued PTSD related symptoms including nightmares and flashbacks regarding her previous trauma. She continued to report depressed mood mood at this time. Staff notes the patient had appeared tired and had spent much of her time in her room resting. She had reported some physical pain when walking and reported having aching joints. She had also complained of chronic difficulties with swallowing and had requested pain medications. She had reported having complaints of losing her hair recently as well. Mental Status Exam MSE Comments: This is an overweight, very pale white female in hospital bed with poor grooming and adequate eye contact. She had significant psychomotor retardation. She was cooperative with exam in mild to moderate distress. Speech was decreased in volume and normal rate. Mood described depressed. Her affect was mood congruent and restricted in range. Thought process was linear and organized. Thought content: patient denies suicidal or homicidal ideation, no delusions reported or noted. She minimized any auditory hallucinations at this time and did not appear to be responding to internal stimuli. Attention and concentration are intact and memory appeared reliable but none were formally tested. She is alert and oriented times three. Insight and judgment are limited to impaired. Impulse control is limited to impaired. Vitals/I&O/Wt Last Vital Signs Temp 98 F 08/11/22 13:27 Pulse 76 08/11/22 13:27 Resp 17 08/11/22 13:27 BP 92/50 08/11/22 13:27 Pulse Ox 92 08/11/22 13:27 O2 Del Method 08/11/22 10:15 O2 Flow Rate 0 08/11/22 08:19 Weight last 48 hrs Weight 81.76 kg Weight 81.76 kg Weight 79.379 kg Data NPU 08/11/22 08:01 08/10/22 09:20 Micro: Microbiology 08/10/22 09:00 Occult Blood (FIT) - Final Stool Routine Collection Microbiology 08/10/22 09:00 Stool Routine Collection Occult Blood (FIT) - Final A&P Assessment and plan (1) PTSD (post-traumatic stress disorder): (2) Major depressive disorder: (3) Stroke: Plan This is a 57 year old woman with a history of trauma, depression, PTSD and genetic loading for addiction and lethality issues who presents reporting she is unable to return to her home due to safety reasons and is open to going to a residential for the time being and open to changes in her medications at this time. 1. Continue Cymbalta to 60mg daily to target depression and anxiety. 2. Therapeutic observation 15-minute checks on the unit. 3. Encourage individual group and milieu therapy. 4. Continue Prazosin at 2mg at night to target PTSD related nightmares. 5. Consultation with medicine regarding possible GI bleed?-Declining HCT/HGB Involuntary Hold Information 96 Hour Hold: 96 Hour Involuntary Admission: No Attestations NPU Medical Necessity Statement*: Inpatient hospitalization is medically necessary and the clinically appropriate intervention at this time. We will monitor medications and make changes as indicated with likely length of stay is three to five days. Coding Level of Care Code Acute Code for [facility] Diagnoses PTSD (post-traumatic stress disorder) F43.10 Major depressive disorder F32.9 Stroke I63.9
--- NOTE | 2022-08-11 15:10 | PC.NURSE ---
Report given to JULIET Schmid, Med/Surg. Pt readied for transfer to room 251-2. Pt transferred via wheelchair; belongings and medications sent with patient.
--- NOTE | 2022-08-11 15:37 | PC.NURSE ---
Assessed patient upon arrival to floor. Breath sounds clear bilaterally, bowel sounds present, pulse feels normal.
[2022-08-11] MEDS: peg /e-lyte soln 4,000 mL Btl 1500 ML PO (16:05)
[2022-08-11 16:38] LABS: Glucose Point of Care 171 mg/dL (70-110)
[2022-08-11] MEDS: pantoprazole 40 mg SDV IVP (18:10)
[2022-08-11] MEDS: zolpidem 5 mg Tablet 10 MG PO (20:17)
[2022-08-11] MEDS: prazosin 1 mg Capsule 2 MG PO (20:17)
[2022-08-11] MEDS: montelukast sodium 10 mg Tablet PO (20:17)
[2022-08-11] MEDS: atorvastatin 40 mg Tablet PO (20:17)
[2022-08-11] MEDS: promethazine-dm 6.25-15 mg/5 mL SYRUP (5 mL UD) PO (20:28)
[2022-08-11 20:45] LABS: Glucose Point of Care 186 mg/dL (70-110)
--- NOTE | 2022-08-11 22:51 | PC.NURSE ---
Transfusion from 08/07 still active on TAR and was not ended by user. This was placed on hold by me in order to be able to see next vitals due for current transfusion.
--- NOTE | 2022-08-11 22:52 | PC.NURSE ---
Addendum entered by Elzbieta Lee RN 08/12/22 06:38: When patient was educated that she was on a clear liquid diet, she stated I won't tell, just show me where the snack room is. Patient was assisted back to her room, bed alarm set and elopement risk bracelet applied. Addendum entered by Elzbieta Lee RN 08/11/22 23:00: Patient answers correctly to person, place, time, situation. Patient states, I'm to the [facility]. I can get pretty much anything I want. Original Note: Patient denies SI and HI, however expresses bizarre behaviors such as talking to herself. Patient came to nurses' station and stated where is the snack room at? Patient educated that she is on a clear liquid diet. Patient is alert and oriented x4. Patient's bed alarm set.
--- NOTE | 2022-08-11 23:19 | PC.NURSE ---
Patient has blood transfusion running and is on vital signs machine. Patient's bed alarm went off. Patient trying to get to bathroom. Patient educated that she is hooked up to a blood transfusion and to not get up without assistance. Patient assisted to bedside commode and back to bed. Bed alarm reset.
[2022-08-12] VITALS (23 sets, daily range): BP systolic 90–155; BP diastolic 52–81; PULSE 64–89; RESP 16–20; TEMP 36.1–37; O2SAT 83–95
[2022-08-12 02:51] LABS: Basophils # 0.1 10^3/uL (0.0-0.1); Basophils % 0.5 %; Eosinophils # 0.4 10^3/uL (0.0-0.8); Eosinophils % 4.5 %; Hematocrit 27.2 % (37.0-47.0); Hemoglobin 7.6 g/dL (11.5-15.3); Lymphocytes # 2.3 10^3/uL (0.8-4.8); Lymphocytes % 25.4 %; Mean Corpuscular HGB Conc 27.9 g/dL (30.0-36.0); Mean Corpuscular Hemoglobin 22.1 pg (28.0-34.0); Mean Corpuscular Volume 79.1 fl (81-99); Mean Platelet Volume 9.6 fL (7.4-10.4); Monocytes % 10.6 %; Neutrophils # 5.34 10^3/uL (1.8-7.7); Neutrophils % 58.1 %; Nucleated Red Blood Cells % 0 %; Platelet Count 258 10^3/cmm (130-400); Red Blood Count 3.44 10^6/uL (4.1-5.3); Red Cell Distribution Width 20.2 % (12.1-15.1); White Blood Count 9.2 10^3/uL (4.0-10.0)
[2022-08-12 03:18] LABS: Anion Gap 17.3 (5-19); Blood Urea Nitrogen 16 mg/dL (6-20); Calcium 8.8 mg/dL (8.5-10.5); Carbon Dioxide 21 mmol/L (22-29); Chloride 105 mmol/L (98-107); Glomerular Filtration Rate 38.9 mL/min (90-130); Glucose 89 mg/dL (65-115); Osmolality Calculated 289 mOsm/kg (285-295); Potassium 4.3 mmol/L (3.5-5.1); Sodium 139 mmol/L (136-145)
[2022-08-12] MEDS: pantoprazole 40 mg SDV IVP ×2 (03:25→15:51)
--- NOTE | 2022-08-12 06:09 | P.PN_ITS ---
Subjective Subjective: No acute overnight events Blood pressure has been stable Afebrile Patient did receive 1 unit PRBC yesterday inadequate response to PRBC Vitals/I&O/Wt Last Vital Signs Temp 98.5 F 08/12/22 03:21 Pulse 69 08/12/22 03:21 Resp 17 08/12/22 03:21 BP 107/64 08/12/22 03:21 Pulse Ox 93 08/12/22 03:21 O2 Del Method 08/12/22 03:21 O2 Flow Rate 0 08/11/22 08:19 08/11/22 08/11/22 08/12/22 14:59 22:59 06:59 Intake Total 480 / 480 350 / 830 Balance 480 / 480 350 / 830 Physical Exam Narrative: Anxious appearing female N.p.o. Hemodynamically stable S1, S2 Abdomen soft Looks euvolemic Residual weakness from previous stroke Focal deficit Data 08/12/22 02:42 08/12/22 02:42 A&P Assessment and plan (1) Major depressive disorder: (2) Elevated troponin: (3) Anemia due to GI blood loss: (4) Stroke: (5) Weakness: (6) Anemia: (7) Diabetic neuropathy: Plan Acute on chronic microcytic anemia GI blood loss FOBT positive Melanotic stools Iron deficiency anemia Received 1 bag of iron and 2 units of PRBC before her transfer to neuropsychiatric unit, yesterday ordered 1 more unit, inadequate response to blood transfusion Patient with duodenal ulcer and duodenitis sucralfate added N.p.o. She was given GoLytely as well Blood pressure is stable Continue Protonix 40 mg IV twice daily Acute stroke: Patient is managing very well, she is independent Will need rehab/[place] [facility] placement Her home is not in good condition Patient made a statement that she might take all of her anxiety pills at home Chronic kidney disease: Creatinine baseline Depression/anxiety: Management as per neuropsych N.p.o. DVT prophylaxis on hold he was taking Eliquis for DVT and atrial flutter history Full code Start with GI soft diet Attestations Medical Necessity Statement*: Continue medical management Coding Level of Care Code 34254 Diagnoses Major depressive disorder F32.9 Elevated troponin R77.8 Anemia due to GI blood loss D50.0 Stroke I63.9 Weakness R53.1 Anemia D64.9 Diabetic neuropathy E11.40
--- NOTE | 2022-08-12 06:27 | PC.NURSE ---
GI lab nurse came to get patient. GI lab nurse said she would check patient's AM blood glucose in GI lab.
[2022-08-12 06:34] LABS: Glucose Point of Care 101 mg/dL (70-110)
[2022-08-12] MEDS: sodium chloride 0.9% 1,000 ML 30 ML IV (06:35)
--- NOTE | 2022-08-12 06:41 | PC.NURSE ---
Report given to GI lab nurse. Patient to GI lab via wheelchair with GI lab nurse.
--- NOTE | 2022-08-12 06:51 | ANES.PREANE2 ---
Pre-Anesthetic Assessment Height/Weight: Height 1.57 m Weight 81.76 kg Temp Pulse Resp BP Pulse Ox O2 Del Method O2 Flow Rate 98.2 F 77 18 127/62 92 0 08/12/22 06:30 08/12/22 06:30 08/12/22 06:30 08/12/22 06:30 08/12/22 06:30 08/12/22 06:30 08/11/22 08:19 Preop Diagnosis: GI bleed Operation Date: 08/12/22 07:00 Proposed Procedures p EGD(Not Applicable) - Festus Alberto DO s Colonoscopy(Not Applicable) - Festus Alberto DO Familial anesthetic complications: none Was Beta Carmen taken within 24 hours: Yes Was Clonidine taken within 24 hours: N/A Last intake: Intake Last Liquid Date 08/11/22 Last Liquid Time 23:00 Last Solid Date 08/11/22 Last Intake: 23:00 Social Tobacco and No alcohol 1ppd pack(s) per day 40+ pack years Exam alert, oriented x 3, clear to auscultation bilaterally and regular rate & rhythm Airway Submandibular: within normal limits Cervical ROM: within normal limits Mallampati: Class II Dentition: false Pulmonary Chronic Obstructive Pulmonary Disease CV/HEM Anemia, Coronary Artery Disease (PTCA 20yrs ago), Deep Vein Thrombosis, Hypertension and Myocardial Infarction None reported Hepatic None reported GI Gastroesophageal Reflux Disease Metabolic Diabetes Mellitus and Thyroid Disease Musc/skel Lower Back Pain and Osteoarthritis/DJD Neuropsych Anxiety, Bipolar, Cerebrovascular Accident (left side) and Depression Anesthetic Plan ASA status: 3 Anesthesia: MAC Medications/Allergies Home Medications Medication Instructions Recorded Confirmed Last Taken Type albuterol sulfate 90 mcg/actuation 2 puff inhalation QID PRN 03/25/22 08/06/22 Unknown Rx aerosol inhaler (ProAir HFA) shortness of breath or wheezing #8.5 grams blood sugar diagnostic (Blood #50 ea 03/25/22 08/06/22 Unknown Rx Glucose Test strips) blood-glucose meter #1 ea 03/25/22 08/06/22 Unknown Rx budesonide-formoterol HFA 160 2 puff inhalation BID #10.2 grams 03/25/22 08/06/22 Unknown Rx mcg-4.5 mcg/actuation aerosol inhaler (Symbicort) gabapentin 300 mg capsule 300 mg PO TID 90 days #270 caps 03/25/22 08/06/22 Unknown Rx ipratropium 0.5 mg-albuterol 3 mg 3 ml inhalation Q4H PRN wheezing 03/25/22 08/06/22 Unknown Rx (2.5 mg base)/3 mL nebulization #180 mL soln lancets (Comfort Lancets) #100 ea 03/25/22 08/06/22 Unknown Rx pen needle, diabetic 33 gauge x #100 ea 03/26/22 08/06/22 Unknown Rx 3/16 (Comfort EZ Pen [place]) insulin syringes (disposable) 1 mL #500 ea 04/04/22 08/06/22 Unknown Rx duloxetine 20 mg capsule,delayed 20 mg PO BID 90 days #180 caps 04/10/22 08/06/22 Unknown Rx release acetaminophen 300 mg-codeine 15 mg 1 tab PO TID PRN pain 7 days #21 05/14/22 08/06/22 Unknown Rx tablet tabs apixaban 2.5 mg tablet (Eliquis) 2.5 mg PO BID #60 tabs 05/14/22 08/06/22 Unknown Rx cholecalciferol (vitamin D3) 125 125 mcg PO DAILY 90 days #90 caps 05/14/22 08/06/22 Unknown Rx mcg (5,000 unit) capsule clonidine HCl 0.1 mg tablet 0.1 mg PO TID 90 days #270 tabs 05/14/22 08/06/22 08/05/22 15:00 Rx docusate sodium 250 mg capsule 250 mg PO BID PRN constipation 90 05/14/22 08/06/22 Unknown Rx (DSS) days #180 caps famotidine 20 mg tablet (Pepcid) 20 mg PO BID 90 days #180 tabs 05/14/22 08/06/22 Unknown Rx ferrous sulfate 325 mg (65 mg 325 mg PO BID 90 days #180 tabs 05/14/22 08/06/22 Unknown Rx iron) tablet atorvastatin 40 mg tablet 40 mg PO BEDTIME 08/06/22 08/06/22 Unknown History biotin 2,500 mcg capsule 2,500 mcg PO DAILY 08/06/22 08/06/22 Unknown History insulin detemir U-100 100 unit/mL 40 - 50 unit SUBCUT DAILY 08/06/22 08/06/22 Unknown History (3 mL) subcutaneous pen (Levemir FlexTouch U-100 Insulin) metoprolol succinate 25 mg 25 mg PO BID 08/06/22 08/06/22 1 Day Ago History tablet,extended release 24 hr ~08/05/22 see pharmacy comment montelukast 10 mg tablet 10 mg PO BEDTIME 08/06/22 08/06/22 Unknown History prazosin 1 mg capsule 1 mg PO BEDTIME 08/06/22 08/06/22 Unknown History promethazine-DM 6.25 mg-15 mg/5 mL 5 ml PO Q6H PRN Cough 08/06/22 08/06/22 Unknown History oral syrup zolpidem 10 mg tablet 10 mg PO BEDTIME PRN Sleep 08/06/22 08/06/22 4 Days Ago History ~08/02/22 Allergies Allergy/AdvReac Type Severity Reaction Status Date / Time clindamycin Allergy Unknown Unknown Verified 08/05/22 16:36 Latex, Natural Rubber Allergy Unknown Unknown Verified 08/05/22 16:36 propoxyphene Allergy Unknown Unknown Verified 08/05/22 16:36 [From Darvocet-N] Sulfa (Sulfonamide Allergy Unknown Unknown Verified 08/05/22 16:36 Antibiotics) Current Medications Generic Name Dose Route Start Last Admin Trade Name Freq PRN Reason Stop Dose Admin Albuterol/Ipratropium 3 ml 08/06/22 01:21 08/06/22 08:38 Ipratropium-Albuterol 3 Ml Neb INHALATION 3 ml Q4H PRN Administration wheezing Amlodipine Besylate 10 mg 08/08/22 07:50 08/11/22 08:31 Amlodipine 10 Mg Tablet PO 10 mg DAILY KYRA Administration Apixaban 2.5 mg 08/06/22 09:00 08/06/22 18:19 Apixaban 5 Mg Tablet PO 2.5 mg BID KYRA Administration Aspirin 81 mg 08/06/22 09:00 08/11/22 08:31 Aspirin 81 Mg Ec Tablet PO 81 mg DAILY KYRA Administration Atorvastatin Calcium 40 mg 08/06/22 21:00 08/11/22 20:17 Atorvastatin 40 Mg Tablet PO 40 mg BEDTIME KYRA Administration Budesonide 0.5 mg 08/09/22 20:00 08/11/22 10:43 Budesonide 0.5 Mg/2 Ml Neb INHALATION 0.5 mg BID.RESPIRATORY KYRA Administration Camphor/Menthol/Phenol 1 applic 08/09/22 16:45 08/11/22 11:19 Blistex Lip Oint 7 Gm Tube TOPICAL 1 applic Q1H PRN Administration DRYNESS Clonidine HCl 0.1 mg 08/09/22 21:00 08/11/22 20:17 Clonidine 0.1 Mg Tablet PO 0.1 mg TID KYRA Administration Duloxetine HCl 60 mg 08/11/22 06:00 08/11/22 05:57 Duloxetine 20 Mg Capsule PO 60 mg QAM KYRA Administration Famotidine 20 mg 08/06/22 09:00 08/11/22 18:12 Famotidine 20 Mg Tablet PO 20 mg BID KYRA Administration Ferrous Sulfate 325 mg 08/09/22 18:00 08/11/22 18:12 Ferrous Sulfate Ec 325 Mg Tablet PO 325 mg BID KYRA Administration Gabapentin 300 mg 08/06/22 09:00 08/11/22 20:17 Gabapentin 300 Mg Capsule PO 300 mg TID KYRA Administration Hydralazine HCl 25 mg 08/08/22 18:00 08/11/22 18:12 Hydralazine 25 Mg Tablet PO 25 mg BID KYRA Administration Hydroxyzine Pamoate 50 mg 08/09/22 16:45 08/11/22 18:14 Hydroxyzine 25 Mg Capsule PO 50 mg Q6H PRN Administration ANXIETY Insulin Glargine 40 unit 08/06/22 09:00 08/11/22 08:30 Insulin Glargine 100 Units/1 Ml SUBCUT 40 unit DAILY KYRA Administration Insulin Human Lispro 0 unit 08/06/22 08:00 08/11/22 21:02 Insulin Lispro 100 Unit/1 Ml SUBCUT 6 unit WM&BEDTIME KYRA Administration Protocol Lanolin 1 applic 08/08/22 23:37 08/08/22 23:50 Lanolin Oint 7 Gm TOPICAL 1 applic PRN PRN Administration DRYNESS Metoprolol Tartrate 12.5 mg 08/08/22 09:00 08/11/22 20:17 Metoprolol Tartrate 25 Mg Tablet PO 12.5 mg BID@0900,2100 KYRA Administration Montelukast Sodium 10 mg 08/09/22 21:00 08/11/22 20:17 Montelukast Sodium 10 Mg Tablet PO 10 mg BEDTIME KYRA Administration Nicotine 1 patch 08/09/22 16:45 08/09/22 18:19 Nicotine 21 Mg Patch TRANSDERMA 1 patch DAILY PRN Administration NICOTINE WITHDRAWAL Non-Formulary Medication 2,500 mcg 08/10/22 09:00 08/11/22 08:32 Biotin PO Not Given DAILY KYRA Oxycodone/Acetaminophen 1 tab 08/06/22 06:18 08/11/22 20:17 Oxycodone-Apap 5-325 Mg Tablet PO 1 tab Q6H PRN Administration MODERATE PAIN Pantoprazole Sodium 40 mg 08/11/22 16:30 08/12/22 03:25 Pantoprazole 40 Mg Sdv IVP 40 mg Q12H KYRA Administration Polysaccharide Iron Complex 150 mg 08/08/22 09:00 08/11/22 08:31 Iron Polysaccharide Complex 150 Mg Capsule PO 150 mg DAILY KYRA Administration Prazosin HCl 2 mg 08/10/22 14:39 08/11/22 20:17 Prazosin 1 Mg Capsule PO 2 mg BEDTIME KYRA Administration Promethazine HCl/Dextromethorphan 5 ml 08/09/22 21:48 08/11/22 20:28 Promethazine-Dm 6.25-15 Mg/5 Ml Syrup (5 Ml Ud) PO 5 ml Q6H PRN Administration COUGH AND CONGESTION Vitamin D 5,000 unit 08/10/22 09:00 08/11/22 08:31 Cholecalciferol (Vitamin D3) 5,000 Unit Tablet PO 5,000 unit DAILY KYRA Administration Zolpidem Tartrate 10 mg 08/09/22 17:27 08/11/22 20:17 Zolpidem 5 Mg Tablet PO 10 mg BEDTIME PRN Administration SLEEP PFSH Anesthesia Medical History (Updated 08/10/22 @ 12:58 by Tony Sierra MD) COVID-19 (12/2020) HOSPITALIZED 01/15/2021-06/09/2021 Diabetes mellitus type 2, insulin dependent Diabetic neuropathy History of heart attack History of stroke Hypertension Kidney carcinoma STAGE 4 LEFT KIDNEY REMOVED PTSD (post-traumatic stress disorder) Right great toe amputee SVT (supraventricular tachycardia) Surgical History History of heart artery stent Social History Smoking and tobacco status: never smoked Data Anesthesia 08/12/22 02:42 08/12/22 02:42 Short CBC 08/10/22 08/11/22 08/12/22 Range/Units 09:20 08:01 02:42 WBC 8.1 9.9 9.2 (4.0-10.0) 10^3/uL Hgb 8.6 L 7.6 L 7.6 L (11.5-15.3) g/dL Hct 32.0 L 27.6 L 27.2 L (37.0-47.0) % MCV 80.2 L 79.3 L 79.1 L (81-99) fl Plt Count 323 290 258 (130-400) 10^3/cmm Neut % (Auto) 61.8 62.7 58.1 % Neut # (Auto) 5.02 6.19 5.34 (1.8-7.7) 10^3/uL BMP 08/10/22 08/12/22 09:20 02:42 Sodium 136 139 Potassium 4.5 4.3 Chloride 101 105 Carbon Dioxide 23 21 L BUN 17 16 Creatinine 1.6 H 1.4 H Glucose 202 H 89 Calcium 9.6 8.8 Blood Bank 08/11/22 21:17 Blood Type A Positive Rho(D) Type Positive Antibody Screen Negative Cardiac Studies: Echocardiogram 08/06/22
--- NOTE | 2022-08-12 06:53 | P.CONIM_ITS ---
Providers/Reason For Consult Consulting Physician/Specialty*: Dr. Festus Alberto, DO/General surgery Reason for Consult*: Anemia with fecal occult positive stools Attending Physician: Rikki Roberts MD Primary Care Provider: Skylar Ragland NP History of Present Illness History of Present Illness Connie Costello is a 57 year old female who is currently in the hospital for an acute stroke. She is chronically anemic and had some acute anemia on top of that recently. She has been transfused 2 units PRBCs during this hospital stay. She reports that she has had black/dark stools for about 3 months. She reports having abdominal pain in the middle of her abdomen, but she is unable to explain it more than that. The pain does not radiate. Nothing seems to make the pain better or worse. She does report heartburn for which she takes famotidine. She is also on Eliquis and iron. She has never had a colonoscopy. Denies any family history of colon cancer. Review of Systems General: Reports: 10 or more systems reviewed and unremarkable except in HPI and below Medications/Allergies Home Medications Medication Instructions Recorded Confirmed Last Taken Type albuterol sulfate 90 mcg/actuation 2 puff inhalation QID PRN 03/25/22 08/06/22 Unknown Rx aerosol inhaler (ProAir HFA) shortness of breath or wheezing #8.5 grams blood sugar diagnostic (Blood #50 ea 03/25/22 08/06/22 Unknown Rx Glucose Test strips) blood-glucose meter #1 ea 03/25/22 08/06/22 Unknown Rx budesonide-formoterol HFA 160 2 puff inhalation BID #10.2 grams 03/25/22 08/06/22 Unknown Rx mcg-4.5 mcg/actuation aerosol inhaler (Symbicort) gabapentin 300 mg capsule 300 mg PO TID 90 days #270 caps 03/25/22 08/06/22 Unk nown Rx ipratropium 0.5 mg-albuterol 3 mg 3 ml inhalation Q4H PRN wheezing 03/25/22 08/06/22 Unknown Rx (2.5 mg base)/3 mL nebulization #180 mL soln lancets (Comfort Lancets) #100 ea 03/25/22 08/06/22 Unknown Rx pen needle, diabetic 33 gauge x #100 ea 03/26/22 08/06/22 Unknown Rx 3/16 (Comfort EZ Pen [place]) insulin syringes (disposable) 1 mL #500 ea 04/04/22 08/06/22 Unknown Rx duloxetine 20 mg capsule,delayed 20 mg PO BID 90 days #180 caps 04/10/22 08/06/22 Unknown Rx release acetaminophen 300 mg-codeine 15 mg 1 tab PO TID PRN pain 7 days #21 05/14/2202/18 Unknown Rx tablet tabs apixaban 2.5 mg tablet (Eliquis) 2.5 mg PO BID #60 tabs 05/14/22 08/06/22 Unknown Rx cholecalciferol (vitamin D3) 125 125 mcg PO DAILY 90 days #90 caps 05/14/22 0 08/06/22 Unknown Rx mcg (5,000 unit) capsule clonidine HCl 0.1 mg tablet 0.1 mg PO TID 90 days #270 tabs 05/14/22 08/06/22 08/05/22 15:00 Rx docusate sodium 250 mg capsule 250 mg PO BID PRN constipation 90 05/14/22 08/06/22 Unknown Rx (DSS) days #180 caps famotidine 20 mg tablet (Pepcid) 20 mg PO BID 90 days #180 tabs 05/14/22 08/06/22 Unknown Rx ferrous sulfate 325 mg (65 mg 325 mg PO BID 90 days #180 tabs 05/14/22 08/06/22 Unknown Rx iron) tablet atorvastatin 40 mg tablet 40 mg PO BEDTIME 08/06/22 08/06/22 Unknown History biotin 2,500 mcg capsule 2,500 mcg PO DAILY 08/06/22 08/06/22 Unknown History insulin detemir U-100 100 unit/mL 40 - 50 unit SUBCUT DAILY 08/06/22 08/06/22 Unknown History (3 mL) subcutaneous pen (Levemir FlexTouch U-100 Insulin) metoprolol succinate 25 mg 25 mg PO BID 08/06/22 08/06/22 1 Day Ago History tablet,extended release 24 hr ~08/05/22 see pharmacy comment montelukast 10 mg tablet 10 mg PO BEDTIME 08/06/22 08/06/22 Unknown History prazosin 1 mg capsule 1 mg PO BEDTIME 08/06/22 08/06/22 Unknown History promethazine-DM 6.25 mg-15 mg/5 mL 5 ml PO Q6H PRN Cough 08/06/22 08/06/22 Unknown History oral syrup zolpidem 10 mg tablet 10 mg PO BEDTIME PRN Sleep 08/06/22 08/06/22 4 Days Ago History ~08/02/22 Allergies Allergy/AdvReac Type Severity Reaction Status Date / Time clindamycin Allergy Unknown Unknown Verified 08/05/22 16:36 Latex, Natural Rubber Allergy Unknown Unknown Verified 08/05/22 16:36 propoxyphene Allergy Unknown Unknown Verified 08/05/22 16:36 [From Darvocet-N] Sulfa (Sulfonamide Allergy Unknown Unknown Verified 08/05/22 16:36 Antibiotics) Current Medications Generic Name Dose Route Start Last Admin Trade Name Freq PRN Reason Stop Dose Admin Albuterol/Ipratropium 3 ml 08/06/22 01:21 08/06/22 08:38 Ipratropium-Albuterol 3 Ml Neb INHALATION 3 ml Q4H PRN Administration wheezing Amlodipine Besylate 10 mg 08/08/22 07:50 08/11/22 08:31 Amlodipine 10 Mg Tablet PO 10 mg DAILY KYRA Administration Apixaban 2.5 mg 08/06/22 09:00 08/06/22 18:19 Apixaban 5 Mg Tablet PO 2.5 mg BID KYRA Administration Aspirin 81 mg 08/06/22 09:00 08/11/22 08:31 Aspirin 81 Mg Ec Tablet PO 81 mg DAILY KYRA Administration Atorvastatin Calcium 40 mg 08/06/22 21:00 08/11/22 20:17 Atorvastatin 40 Mg Tablet PO 40 mg BEDTIME KYRA Administration Budesonide 0.5 mg 08/09/22 20:00 08/11/22 10:43 Budesonide 0.5 Mg/2 Ml Neb INHALATION 0.5 mg BID.RESPIRATORY KYRA Administration Camphor/Menthol/Phenol 1 applic 08/09/22 16:45 08/11/22 11:19 Blistex Lip Oint 7 Gm Tube TOPICAL 1 applic Q1H PRN Administration DRYNESS Clonidine HCl 0.1 mg 08/09/22 21:00 08/11/22 20:17 Clonidine 0.1 Mg Tablet PO 0.1 mg TID KYRA Administration Duloxetine HCl 60 mg 08/11/22 06:00 08/11/22 05:57 Duloxetine 20 Mg Capsule PO 60 mg QAM KYRA Administration Famotidine 20 mg 08/06/22 09:00 08/11/22 18:12 Famotidine 20 Mg Tablet PO 20 mg BID KYRA Administration Ferrous Sulfate 325 mg 08/09/22 18:00 08/11/22 18:12 Ferrous Sulfate Ec 325 Mg Tablet PO 325 mg BID KYRA Administration Gabapentin 300 mg 08/06/22 09:00 08/11/22 20:17 Gabapentin 300 Mg Capsule PO 300 mg TID [facility] Administration Hydralazine HCl 25 mg 08/08/22 18:00 08/11/22 18:12 Hydralazine 25 Mg Tablet PO 25 mg BID KYRA Administration Hydroxyzine Pamoate 50 mg 08/09/22 16:45 08/11/22 18:14 Hydroxyzine 25 Mg Capsule PO 50 mg Q6H PRN Administration ANXIETY Insulin Glargine 40 unit 08/06/22 09:00 08/11/22 08:30 Insulin Glargine 100 Units/1 Ml SUBCUT 40 unit DAILY [facility] Administration Insulin Human Lispro 0 unit 08/06/22 08:00 08/11/22 21:02 Insulin Lispro 100 Unit/1 Ml SUBCUT 6 unit WM&BEDTIME [facility] Administration Protocol Lanolin 1 applic 08/08/22 23:37 08/08/22 23:50 Lanolin Oint 7 Gm TOPICAL 1 applic PRN PRN Administration DRYNESS Metoprolol Tartrate 12.5 mg 08/08/22 09:00 08/11/22 20:17 Metoprolol Tartrate 25 Mg Tablet PO 12.5 mg BID@0900,2100 [facility] Administration Montelukast Sodium 10 mg 08/09/22 21:00 08/11/22 20:17 Montelukast Sodium 10 Mg Tablet PO 10 mg BEDTIME [facility] Administration Nicotine 1 patch 08/09/22 16:45 08/09/22 18:19 Nicotine 21 Mg Patch TRANSDERMA 1 patch DAILY PRN Administration NICOTINE WITHDRAWAL Non-Formulary Medication 2,500 mcg 08/10/22 09:00 08/11/22 08:32 Biotin PO Not Given DAILY [facility] Oxycodone/Acetaminophen 1 tab 08/06/22 06:18 08/11/22 20:17 Oxycodone-Apap 5-325 Mg Tablet PO 1 tab Q6H PRN Administration MODERATE PAIN Pantoprazole Sodium 40 mg 08/11/22 16:30 08/12/22 03:25 Pantoprazole 40 Mg Sdv IVP 40 mg Q12H KYRA Administration Polysaccharide Iron Complex 150 mg 08/08/22 09:00 08/11/22 08:31 Iron Polysaccharide Complex 150 Mg Capsule PO 150 mg DAILY [facility]RA Administration Prazosin HCl 2 mg 08/10/22 14:39 08/11/22 20:17 Prazosin 1 Mg Capsule PO 2 mg BEDTIME [facility]RA Administration Promethazine HCl/Dextromethorphan 5 ml 08/09/22 21:48 08/11/22 20:28 Promethazine-Dm 6.25-15 Mg/5 Ml Syrup (5 Ml Ud) PO 5 ml Q6H PRN Administration COUGH AND CONGESTION Vitamin D 5,000 unit 08/10/22 09:00 08/11/22 08:31 Cholecalciferol (Vitamin D3) 5,000 Unit Tablet PO 5,000 unit DAILY [facility]RA Administration Zolpidem Tartrate 10 mg 08/09/22 17:27 08/11/22 20:17 Zolpidem 5 Mg Tablet PO 10 mg BEDTIME PRN Administration SLEEP PFSH Acute PFSH: Medical History COVID-19 (12/2020) HOSPITALIZED 01/15/2021-06/09/2021 Diabetes mellitus type 2, insulin dependent Diabetic neuropathy History of heart attack History of stroke Hypertension Kidney carcinoma STAGE 4 LEFT KIDNEY REMOVED PTSD (post-traumatic stress disorder) Right great toe amputee SVT (supraventricular tachycardia) Surgical History History of heart artery stent Social History Smoking and tobacco status: never smoked Vitals/I&O/Wt Last Vital Signs Temp 98.2 F 08/12/22 06:30 Pulse 77 08/12/22 06:30 Resp 18 08/12/22 06:30 BP 127/62 08/12/22 06:30 Pulse Ox 92 08/12/22 06:30 O2 Del Method 08/12/22 06:30 O2 Flow Rate 0 08/11/22 08:19 08/11/22 08/11/22 08/12/22 14:59 22:59 06:59 Intake Total 480 / 480 350 / 830 Balance 480 / 480 350 / 830 Physical Exam Narrative: General : Patient is well developed , no acute distress, oriented x3 Head : Normal cephalic, a-traumatic. Ears : Pinnae and external canal are normal. Hearing is normal. Eyes : PERRLA, Sclera and injection are normal. No conjunctival discharge. Nose : Mucous membranes are without erythema. Throat : buccal mucosa is normal, gums are without significant recession or hypertrophy. Lungs : Equal chest rise bilaterally, no use of accessory muscles, trachea is midline. Cor : Rate and rhythm are normal. Abdomen : Soft, ND, NT, no g/r/m Extremities : No edema, no cyanosis or clubbing, dorsalis pedis pulses are present bilaterally, non-tender to palpation of calves. Upper extremities are normal bilaterally. Back : non-tender to palpation, no CVA tenderness. Data 08/12/22 02:42 08/12/22 02:42 A&P Assessment and plan (1) Anemia: Plan EGD Colonoscopy The risks and benefits of the procedure, including bleeding, infection, intestinal perforation requiring surgery, missed lesion were explained to the patient. The patient is understanding of the risks and wishes to proceed. Coding Level of Care Code Acute Code for [facility] Fwd Diagnoses Anemia D64.9
[2022-08-12] MEDS: nicotine 21 mg Patch 1 PATCH TRANSDERMA (08:45)
[2022-08-12] MEDS: duloxetine 20 mg Capsule 60 MG PO (08:46)
[2022-08-12] MEDS: gabapentin 300 mg Capsule PO ×2 (08:46→20:25)
[2022-08-12] MEDS: metoprolol tartrate 25 mg Tablet 12.5 MG PO ×2 (08:46→20:26)
[2022-08-12] MEDS: hyDRALAzine 25 mg Tablet PO ×2 (08:47→17:36)
[2022-08-12] MEDS: iron polysaccharide complex 150 mg Capsule PO (08:47)
[2022-08-12] MEDS: cholecalciferol (vitamin D3) 5,000 unit Tablet 5000 UNIT PO (08:47)
[2022-08-12] MEDS: ferrous sulfate EC 325 mg Tablet PO ×2 (08:47→17:35)
[2022-08-12] MEDS: aspirin 81 mg EC Tablet PO (08:48)
[2022-08-12] MEDS: amlodipine 10 mg Tablet PO (08:48)
[2022-08-12] MEDS: cloNIDine 0.1 mg Tablet PO ×2 (08:48→20:26)
[2022-08-12] MEDS: oxyCODONE-APAP 5-325 mg Tablet 1 TAB PO ×3 (08:53→22:22)
[2022-08-12] MEDS: hyDROXYzine 25 mg Capsule 50 MG PO ×3 (08:54→22:22)
--- NOTE | 2022-08-12 09:34 | PC.SOCIAL ---
IMM update IMM not updated as patient isn't expected to dc in the next 24-48 hours.
[2022-08-12] MEDS: insulin glargine 100 units/1 mL 40 UNIT SUBCUT (09:38)
--- NOTE | 2022-08-12 10:47 | PC.NURSE ---
Patient reported that her left forearm had a lump and she wanted it looked at or she was going to call a rn rehabilitation. This nurse felt the area and observed a scab and no notable lumps under the skin. Explained to the patient that she had an IV at that location and it infiltrated meaning it would possibly bruise and be sore. Offered ice pack patient refused.
[2022-08-12 11:04] LABS: Glucose Point of Care 264 mg/dL (70-110)
[2022-08-12] MEDS: insulin lispro 100 unit/1 mL SUBCUT ×3 (11:23→22:23)
[2022-08-12] MEDS: sucralfate 1 gm/10 mL Oral Liq UDC PO ×3 (11:25→20:26)
[2022-08-12 11:31] LABS: Hematocrit 29.8 % (37.0-47.0); Hemoglobin 8.5 g/dL (11.5-15.3)
--- NOTE | 2022-08-12 13:50 | W.PM.NPUPNS ---
Subjective NPU Subjective: Patient is a 57-year-old white female with a history of PTSD and depression admitted with complaints of auditory hallucinations and visual hallucinations. Patient had reported no suicidal thoughts today. She had continued to report complaints of being lightheaded. She had stated that she was content to be on the medical floor and stated that she had nowhere to live when she leaves here. She stated that she needed help in the home with managing her medical care. She reports considerable pain at this time and reports that she needs help with managing her pain currently. Mental Status Exam MSE Comments: This is an overweight, very pale white female in hospital bed with poor grooming and adequate eye contact. She had significant psychomotor retardation. She was cooperative with exam in mild to moderate distress. Speech was decreased in volume and normal rate. Mood described depressed. Her affect was mood congruent and restricted in range. Thought process was linear and organized. Thought content: patient denies suicidal or homicidal ideation, no delusions reported or noted. She minimized any auditory hallucinations at this time and did not appear to be responding to internal stimuli. Attention and concentration are intact and memory appeared reliable but none were formally tested. She is alert and oriented times three. Insight and judgment are limited to impaired. Impulse control is limited to impaired. Vitals/I&O/Wt Last Vital Signs Temp 97.7 F 08/12/22 13:31 Pulse 73 08/12/22 13:31 Resp 18 08/12/22 13:31 BP 111/70 08/12/22 13:31 Pulse Ox 95 08/12/22 13:31 O2 Del Method 08/12/22 09:08 O2 Flow Rate 3 08/12/22 07:41 08/11/22 08/12/22 08/12/22 22:59 06:59 14:59 Intake Total 830 / 830 350 / 1180 800 / 800 Balance 830 / 830 350 / 1180 800 / 800 Data NPU 08/12/22 11:17 08/12/22 02:42 A&P Assessment and plan (1) PTSD (post-traumatic stress disorder): (2) Major depressive disorder: (3) Stroke: Plan This is a 57 year old woman with a history of trauma, depression, PTSD and genetic loading for addiction and lethality issues who presents reporting she is unable to return to her home due to safety reasons and is open to going to a [place] [facility] care facility for the time being and open to changes in her medications at this time. 1. Continue Cymbalta to 60mg daily to target depression and anxiety. 2. Therapeutic observation 15-minute checks on the unit. 3. Encourage individual group and milieu therapy. 4. Continue Prazosin at 2mg at night to target PTSD related nightmares. 5. Transfer back to NPU when stabilized. Involuntary Hold Information 96 Hour Hold: 96 Hour Involuntary Admission: No Attestations NPU Medical Necessity Statement*: Inpatient hospitalization is medically necessary and the clinically appropriate intervention at this time, transfer back to NPU for continued stay upon medical stabilization. Coding Level of Care Code Acute Code for [facility] Fwd Diagnoses PTSD (post-traumatic stress disorder) F43.10 Major depressive disorder F32.9 Stroke I63.9
--- NOTE | 2022-08-12 16:22 | ANE.PACU2 ---
Inpatient post-anesthesia follow up: Airway intact: Yes Vital signs: Temperature 97.9 F Pulse Rate 89 Respiratory Rate 16 Blood Pressure 124/60 Pulse Oximetry 93 Oxygen Delivery Me thod Room Air Oxygen Flow Rate 3 Fraction of Inspir ed Oxygen Hydration adequate: Yes Nausea and vomiting: No Pain level: 2 Mental status: Baseline
[2022-08-12 17:16] LABS: Glucose Point of Care 213 mg/dL (70-110)
[2022-08-12] MEDS: prazosin 1 mg Capsule 2 MG PO (20:26)
[2022-08-12] MEDS: montelukast sodium 10 mg Tablet PO (20:26)
[2022-08-12] MEDS: ondansetron 4 MG Tablet PO (20:26)
[2022-08-12] MEDS: atorvastatin 40 mg Tablet PO (20:26)
[2022-08-12] MEDS: promethazine-dm 6.25-15 mg/5 mL SYRUP (5 mL UD) PO (20:34)
[2022-08-12] MEDS: budesonide 0.5 mg/2 mL Neb INHALATION (21:33)
[2022-08-12] MEDS: albuterol 2.5 mg/3 mL Neb INHALATION (21:33)
[2022-08-12 21:54] LABS: Glucose Point of Care 228 mg/dL (70-110)
[2022-08-13] VITALS (14 sets, daily range): BP systolic 95–121; BP diastolic 57–66; PULSE 72–83; RESP 16–20; TEMP 36.4–36.9; O2SAT 90–95
[2022-08-13 05:18] LABS: Basophils # 0.1 10^3/uL (0.0-0.1); Basophils % 0.7 %; Eosinophils # 0.3 10^3/uL (0.0-0.8); Hematocrit 29.5 % (37.0-47.0); Hemoglobin 8.4 g/dL (11.5-15.3); Lymphocytes # 2.2 10^3/uL (0.8-4.8); Lymphocytes % 26.2 %; Mean Corpuscular HGB Conc 28.5 g/dL (30.0-36.0); Mean Corpuscular Volume 80.6 fl (81-99); Mean Platelet Volume 9.8 fL (7.4-10.4); Monocytes # 0.9 10^3/uL (0.2-0.9); Monocytes % 11.1 %; Neutrophils # 4.71 10^3/uL (1.8-7.7); Neutrophils % 56.7 %; Nucleated Red Blood Cells % 0 %; Platelet Count 273 10^3/cmm (130-400); Red Blood Count 3.66 10^6/uL (4.1-5.3); Red Cell Distribution Width 21.2 % (12.1-15.1); White Blood Count 8.3 10^3/uL (4.0-10.0)
[2022-08-13] MEDS: pantoprazole 40 mg SDV IVP (05:28)
[2022-08-13] MEDS: duloxetine 20 mg Capsule 60 MG PO (05:28)
[2022-08-13] MEDS: promethazine-dm 6.25-15 mg/5 mL SYRUP (5 mL UD) PO (05:30)
[2022-08-13] MEDS: sucralfate 1 gm/10 mL Oral Liq UDC PO ×4 (06:23→22:41)
[2022-08-13] MEDS: oxyCODONE-APAP 5-325 mg Tablet 1 TAB PO ×3 (06:30→18:33)
[2022-08-13] MEDS: hyDROXYzine 25 mg Capsule 50 MG PO ×3 (06:30→21:11)
[2022-08-13 06:58] LABS: Glucose Point of Care 176 mg/dL (70-110)
[2022-08-13] MEDS: budesonide 0.5 mg/2 mL Neb INHALATION ×2 (08:13→19:48)
[2022-08-13] MEDS: albuterol 2.5 mg/3 mL Neb INHALATION (08:13)
[2022-08-13] MEDS: hyDRALAzine 25 mg Tablet PO (08:17)
[2022-08-13] MEDS: gabapentin 300 mg Capsule PO ×3 (08:17→21:06)
[2022-08-13] MEDS: iron polysaccharide complex 150 mg Capsule PO (08:17)
[2022-08-13] MEDS: cloNIDine 0.1 mg Tablet PO (08:17)
[2022-08-13] MEDS: insulin lispro 100 unit/1 mL SUBCUT ×4 (08:17→22:14)
[2022-08-13] MEDS: ferrous sulfate EC 325 mg Tablet PO ×2 (08:17→17:42)
[2022-08-13] MEDS: aspirin 81 mg EC Tablet PO (08:17)
[2022-08-13] MEDS: cholecalciferol (vitamin D3) 5,000 unit Tablet 5000 UNIT PO (08:18)
[2022-08-13] MEDS: insulin glargine 100 units/1 mL 40 UNIT SUBCUT (08:24)
--- NOTE | 2022-08-13 10:27 | P.PN_ITS ---
Subjective Subjective: Hemoglobin is 8.4 Patient is independently able to the bathroom No overnight events Patient is stable She can be transferred to Neuropsych Unit Vitals/I&O/Wt Last Vital Signs Temp 97.5 F L 08/13/22 07:41 Pulse 76 08/13/22 08:22 Resp 16 08/13/22 08:22 BP 111/60 08/13/22 08:17 Pulse Ox 93 08/13/22 08:22 O2 Del Method 08/13/22 08:22 O2 Flow Rate 2 08/12/22 20:22 FiO2 2 08/12/22 21:37 08/12/22 08/13/22 08/13/22 22:59 06:59 14:59 Intake Total 240 / 1040 240 / 240 Balance 240 / 1040 240 / 240 Physical Exam Narrative: Awake and alert hemodynamics able Independently moving Awake and alert Nonfocal neuro exam Pleasant and cooperative S1, S2 Currently on room air Data 08/13/22 04:42 08/12/22 02:42 A&P Assessment and plan (1) Anemia due to GI blood loss: (2) Major depressive disorder: (3) Stroke: (4) Anemia: (5) Diabetic neuropathy: (6) Duodenal ulcer: Plan Acute stroke: Patient is doing well acute stroke: Independent Acute on chronic anemia Blood loss anemia Duodenitis gastritis duodenal ulcer Status post 2 units PRBC, continue sucralfate and Protonix likely 6 to 8 weeks Depression: Will need Neuropsych Unit She will need longterm placement Hemoglobin stable 8.4 Tolerating diet A-fib/DVT history holding aspirin and Eliquis for now We will need to hold her Eliquis for at least 4 weeks Continue iron supplement She can be transferred back to neuropsychiatric unit We will follow along Full code Attestations Medical Necessity Statement*: Continue medical management Coding Level of Care Code 92346 Diagnoses Anemia due to GI blood loss D50.0 Major depressive disorder F32.9 Stroke I63.9 Anemia D64.9 Diabetic neuropathy E11.40 Duodenal ulcer K26.9
[2022-08-13 11:57] LABS: Glucose Point of Care 270 mg/dL (70-110)
--- NOTE | 2022-08-13 16:05 | P.NPUPN_ITS ---
Subjective NPU Subjective: Patient is a 57-year-old white female with a history of PTSD and depression admitted with complaints of auditory hallucinations and visual hallucinations. Patient was readmitted to the neuropsychiatric unit earlier today. She reported that she currently has no home and is unable to care for herself. She reports that she had a recent stroke and struggles with tending to self-care with her history of end-stage renal disease. She continues report depressed mood at this time. She had reported continued issues managing her pain and had continue to seek pain medicine on the unit. She had remained isolative and reported some feelings of hopelessness. Mental Status Exam MSE Comments: This is an overweight, very pale white female in hospital bed with poor grooming and adequate eye contact. She had significant psychomotor retardation. She was cooperative with exam in mild to moderate distress. Speech was decreased in volume and normal in rate. Mood was described as depressed. Her affect was mood congruent and restricted in range. Thought process was linear and organized. Thought content: patient denies suicidal or homicidal ideation, no delusions were reported or noted. She minimized any auditory hallucinations at this time and did not appear to be responding to internal sti muli. Attention and concentration are intact and memory appeared reliable but none were formally tested. She is alert and oriented times three. Insight and judgment are limited to impaired. Impulse control is limited to impaired. Vitals/I&O/Wt Last Vital Signs Temp 98 F 08/13/22 14:00 Pulse 81 08/13/22 14:00 Resp 18 08/13/22 14:00 BP 121/62 08/13/22 14:00 Pulse Ox 94 08/13/22 14:00 O2 Del Method 08/13/22 14:00 O2 Flow Rate 2 08/12/22 20:22 FiO2 2 08/12/22 21:37 08/13/22 08/13/22 08/13/22 06:59 14:59 22:59 Intake Total 240 / 240 Balance 240 / 240 Data NPU 08/13/22 04:42 08/12/22 02:42 A&P Assessment and plan (1) PTSD (post-traumatic stress disorder): (2) Major depressive disorder: (3) Stroke: Plan This is a 57 year old woman with a history of trauma, depression, PTSD and genetic loading for addiction and lethality issues who presents reporting she is unable to return to her home due to safety reasons and is open to going to a senior living for the time being and open to changes in her medications at this time. 1. Continue Cymbalta to 60mg daily to target depression and anxiety. 2. Therapeutic observation 15-minute checks on the unit. 3. Encourage individual group and milieu therapy. 4. Continue Prazosin at 2mg at night to target PTSD related nightmares. 5. Patient requesting senior living placement, [facility] evaluation recommended. Involuntary Hold Information 96 Hour Hold: 96 Hour Involuntary Admission: No Attestations NPU Medical Necessity Statement*: Inpatient hospitalization is medically necessary and the clinically appropriate intervention at this time the patient's likely length of stay is 7 to 10 days.. Coding Level of Care Code Acute Code for [facility] Diagnoses PTSD (post-traumatic stress disorder) F43.10 Major depressive disorder F32.9 Stroke I63.9
[2022-08-13 17:37] LABS: Glucose Point of Care 197 mg/dL (70-110)
[2022-08-13] MEDS: pantoprazole DR 40 mg Tablet PO (17:43)
[2022-08-13] MEDS: atorvastatin 40 mg Tablet PO (21:05)
[2022-08-13] MEDS: prazosin 1 mg Capsule 2 MG PO (21:06)
[2022-08-13] MEDS: montelukast sodium 10 mg Tablet PO (21:07)
[2022-08-13] MEDS: zolpidem 5 mg Tablet 10 MG PO (21:07)
[2022-08-13] MEDS: nicotine 2 mg Gum BUCCAL (21:23)
[2022-08-13 21:46] LABS: Glucose Point of Care 234 mg/dL (70-110)
[2022-08-14] VITALS (7 sets, daily range): BP systolic 112–146; BP diastolic 68–88; PULSE 83–96; RESP 15–18; TEMP 36.6; O2SAT 92–97
--- NOTE | 2022-08-14 05:40 | PC.NURSE ---
pt insulin late due to unit not having needed supplies for accucheck and unable to locate insulin syringes. 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 pt Lopressor held due bp 117/63, notified.
[2022-08-14] MEDS: duloxetine 20 mg Capsule 60 MG PO (06:49)
[2022-08-14 08:19] LABS: Glucose Point of Care 179 mg/dL (70-110)
[2022-08-14] MEDS: budesonide 0.5 mg/2 mL Neb INHALATION ×2 (08:25→21:37)
[2022-08-14] MEDS: insulin lispro 100 unit/1 mL SUBCUT ×4 (09:30→21:08)
[2022-08-14] MEDS: oxyCODONE-APAP 5-325 mg Tablet 1 TAB PO ×2 (09:31→18:00)
[2022-08-14] MEDS: iron polysaccharide complex 150 mg Capsule PO (09:32)
[2022-08-14] MEDS: pantoprazole DR 40 mg Tablet PO ×2 (09:32→17:57)
[2022-08-14] MEDS: ferrous sulfate EC 325 mg Tablet PO ×2 (09:32→17:57)
[2022-08-14] MEDS: gabapentin 300 mg Capsule PO ×3 (09:32→21:05)
[2022-08-14] MEDS: cholecalciferol (vitamin D3) 5,000 unit Tablet 5000 UNIT PO (09:32)
[2022-08-14] MEDS: amlodipine 10 mg Tablet PO (09:32)
[2022-08-14] MEDS: nicotine 4 mg lozenge MUCOUS MEM ×6 (09:37→22:53)
[2022-08-14] MEDS: hyDROXYzine 25 mg Capsule 50 MG PO ×2 (09:37→15:18)
[2022-08-14] MEDS: metoprolol tartrate 25 mg Tablet 12.5 MG PO ×2 (10:20→21:19)
[2022-08-14] MEDS: insulin glargine 100 units/1 mL 40 UNIT SUBCUT (10:20)
[2022-08-14 12:33] LABS: Glucose Point of Care 209 mg/dL (70-110)
--- NOTE | 2022-08-14 15:28 | P.NPUPN_ITS ---
Subjective NPU Subjective: Patient is a 57-year-old white female with a history of PTSD and depression admitted with complaints of auditory hallucinations and visual hallucinations. She had minimized any auditory visual hallucinations today. She continued to report depressed mood. She has a history of stage IV renal disease and states that she has struggled with maintaining care for herself due to her active physical problems and her problems with her memory. She had expressed concern that she would become extremely ill if she were to go home without any additional help. The patient reported adequate appetite. She had continue to report various pain related issues throughout her body. She was able to attend groups. She reported having some difficulties with sleep. She had reported more intense dreaming and reported some nightmares that appear to be associated with her trauma. Mental Status Exam MSE Comments: This is an overweight, very pale white female in hospital bed with poor grooming and remittent eye contact. She had significant psychomotor retardation. She was cooperative with exam in mild to moderate distress. Speech was decreased in volume and normal in rate. Mood was described as depressed. Her affect was mood congruent and restricted in range. Thought process was linear and organized. Thought content: patient denies suicidal or homicidal ideation, no delusions were reported or noted. She minimized any auditory hallucinations at this time and did not appear to be responding to internal stimuli. Attention and concentration are intact and memory appeared reliable but none were formally tested. She is alert and oriented times three. Insight and judgment are limited to impaired. Impulse control is limited to impaired. Vitals/I&O/Wt Last Vital Signs Temp 98 F 08/14/22 14:00 Pulse 83 08/14/22 14:00 Resp 18 08/14/22 14:00 BP 119/68 08/14/22 14:00 Pulse Ox 92 08/14/22 14:00 O2 Del Method 08/14/22 14:00 O2 Flow Rate 0 08/14/22 08:00 FiO2 2 08/12/22 21:37 Data NPU 08/13/22 04:42 08/12/22 02:42 A&P Assessment and plan (1) PTSD (post-traumatic stress disorder): (2) Major depressive disorder: (3) Stroke: Plan This is a 57 year old woman with a history of trauma, depression, PTSD and genetic loading for addiction and lethality issues who presents reporting she is unable to return to her home due to safety reasons and is open to going to a usp for the time being and open to changes in her medications at this time. 1. Continue Cymbalta to 60mg daily to target depression and anxiety. Add seroquel 50mg at night to target depression. 2. Therapeutic observation 15-minute checks on the unit. 3. Encourage individual group and milieu therapy. 4. Continue Prazosin at 2mg at night to target PTSD related nightmares. 5. Patient requesting usp placement, [facility] evaluation recommended to assess ability to live independently. Involuntary Hold Information 96 Hour Hold: 96 Hour Involuntary Admission: No Attestations NPU Medical Necessity Statement*: Inpatient hospitalization is medically necessary and the clinically appropriate intervention at this time. The patient's likely length of stay is 7 to 10 days. Coding Level of Care Code Acute Code for [facility] Diagnoses PTSD (post-traumatic stress disorder) F43.10 Major depressive disorder F32.9 Stroke I63.9
[2022-08-14] MEDS: sucralfate 1 gm/10 mL Oral Liq UDC PO ×2 (17:24→21:20)
[2022-08-14 17:40] LABS: Glucose Point of Care 171 mg/dL (70-110)
[2022-08-14 19:50] LABS: Glucose Point of Care 215 mg/dL (70-110)
[2022-08-14] MEDS: atorvastatin 40 mg Tablet PO (21:05)
[2022-08-14] MEDS: quetiapine 25 mg Tablet 50 MG PO (21:07)
[2022-08-14] MEDS: montelukast sodium 10 mg Tablet PO (21:07)
[2022-08-14] MEDS: prazosin 1 mg Capsule 2 MG PO (21:07)
[2022-08-14] MEDS: zolpidem 5 mg Tablet 10 MG PO (21:08)
[2022-08-15] VITALS (7 sets, daily range): BP systolic 121–150; BP diastolic 75–76; PULSE 81–93; RESP 16–18; TEMP 36.6–36.8; O2SAT 93–94
[2022-08-15] MEDS: pantoprazole DR 40 mg Tablet PO ×2 (09:19→18:13)
[2022-08-15] MEDS: gabapentin 300 mg Capsule PO ×3 (09:19→21:28)
[2022-08-15] MEDS: ferrous sulfate EC 325 mg Tablet PO ×2 (09:19→18:13)
[2022-08-15] MEDS: amlodipine 10 mg Tablet PO (09:19)
[2022-08-15] MEDS: duloxetine 60 mg Capsule PO (09:19)
[2022-08-15] MEDS: iron polysaccharide complex 150 mg Capsule PO (09:19)
[2022-08-15] MEDS: nicotine 4 mg lozenge MUCOUS MEM ×6 (09:20→21:32)
[2022-08-15 09:25] LABS: Glucose Point of Care 178 mg/dL (70-110)
[2022-08-15] MEDS: ipratropium-albuterol 3 mL Neb INHALATION (09:37)
[2022-08-15] MEDS: budesonide 0.5 mg/2 mL Neb INHALATION ×2 (09:37→22:18)
[2022-08-15] MEDS: insulin lispro 100 unit/1 mL SUBCUT ×4 (09:52→21:33)
[2022-08-15] MEDS: promethazine-dm 6.25-15 mg/5 mL SYRUP (5 mL UD) PO (12:00)
[2022-08-15] MEDS: sucralfate 1 gm/10 mL Oral Liq UDC PO ×2 (12:12→21:30)
[2022-08-15 12:13] LABS: Glucose Point of Care 244 mg/dL (70-110)
[2022-08-15] MEDS: blistex lip oint 7 gm Tube 1 APPLIC TOPICAL ×2 (12:28→15:06)
[2022-08-15] MEDS: oxyCODONE-APAP 5-325 mg Tablet 1 TAB PO ×2 (13:40→21:30)
--- NOTE | 2022-08-15 15:20 | W.PM.NPUPNS ---
Subjective NPU Subjective: Patient is a 57-year-old white female with a history of PTSD and depression admitted with complaints of auditory hallucinations and visual hallucinations. She had minimized any auditory or visual loose Nations at this time. She had reported depressed mood and continued periods of having occasional flashbacks. She had reported significant pain issues that had been contributing to her worsening depression. She had reported continued periods of fatigue and low energy. She had endorsed some feelings of hopelessness and stated that she had been worried about living by herself without any medical support as she stated that she had had a hard time with completing activities of daily living. She had reported being more forgetful at home and reported that her motivational problems had contributed to her problems with taking medications at times. She had reported some improved sleep with the Seroquel prescribed at 50 mg at night yesterday. Mental Status Exam MSE Comments: This is an overweight, very pale white female in hospital bed with poor grooming and intermittent eye contact. She had significant psychomotor retardation. She was cooperative with exam in mild to moderate distress. Speech was decreased in volume and normal in rate. Mood was described as down. Her affect was mood congruent and restricted in range. Thought process was linear and organized. Thought content: patient denies suicidal or homicidal ideation, no delusions were reported or noted. She minimized any auditory hallucinations at this time and did not appear to be responding to internal stimuli. Attention and concentration are intact and memory appeared reliable but none were formally tested. She is alert and oriented times three. Insight and judgment are limited to impaired. Impulse control is limited to impaired. Vitals/I&O/Wt Last Vital Signs Temp 97.9 F 08/14/22 20:30 Pulse 87 08/15/22 09:46 Resp 17 08/15/22 13:40 BP 146/69 08/14/22 20:30 Pulse Ox 94 08/15/22 08:00 O2 Del Method 08/15/22 08:00 O2 Flow Rate 0 08/15/22 08:00 FiO2 2 08/12/22 21:37 Data NPU 08/13/22 04:42 08/12/22 02:42 A&P Assessment and plan (1) PTSD (post-traumatic stress disorder): (2) Major depressive disorder: (3) Stroke: Plan This is a 57 year old woman with a history of trauma, depression, PTSD and genetic loading for addiction and lethality issues who presents reporting she is unable to return to her home due to safety reasons and is open to going to a care home for the time being and open to changes in her medications at this time. 1. Continue Cymbalta to 60mg daily to target depression and anxiety. Continue seroquel at 50mg at night to target depression. 2. Therapeutic observation 15-minute checks on the unit. 3. Encourage individual group and milieu therapy. 4. Continue Prazosin at 2mg at night to target PTSD related nightmares. 5. OT evaluation complete. Involuntary Hold Information 96 Hour Hold: 96 Hour Involuntary Admission: No Attestations NPU Medical Necessity Statement*: Inpatient hospitalization is medically necessary and the clinically appropriate intervention at this time. The patient's likely length of stay is 7 to 10 days. Coding Level of Care Code Acute Code for [facility] Diagnoses PTSD (post-traumatic stress disorder) F43.10 Major depressive disorder F32.9 Stroke I63.9
[2022-08-15 17:38] LABS: Glucose Point of Care 261 mg/dL (70-110)
[2022-08-15] MEDS: hyDROXYzine 25 mg Capsule 50 MG PO (18:13)
[2022-08-15 20:45] LABS: Glucose Point of Care 252 mg/dL (70-110)
[2022-08-15] MEDS: atorvastatin 40 mg Tablet PO (21:28)
[2022-08-15] MEDS: montelukast sodium 10 mg Tablet PO (21:29)
[2022-08-15] MEDS: prazosin 1 mg Capsule 2 MG PO (21:29)
[2022-08-15] MEDS: quetiapine 25 mg Tablet 50 MG PO (21:29)
[2022-08-15] MEDS: zolpidem 5 mg Tablet 10 MG PO (21:32)
[2022-08-15] MEDS: metoprolol tartrate 25 mg Tablet 12.5 MG PO (21:37)
[2022-08-16] VITALS (7 sets, daily range): BP systolic 120–137; BP diastolic 70–77; PULSE 83–94; RESP 16–18; TEMP 36.6–36.8; O2SAT 89–97
[2022-08-16 07:44] LABS: Glucose Point of Care 187 mg/dL (70-110)
[2022-08-16] MEDS: gabapentin 300 mg Capsule PO ×3 (08:48→21:51)
[2022-08-16] MEDS: amlodipine 10 mg Tablet PO (08:48)
[2022-08-16] MEDS: duloxetine 60 mg Capsule PO (08:48)
[2022-08-16] MEDS: pantoprazole DR 40 mg Tablet PO ×2 (08:48→18:15)
[2022-08-16] MEDS: iron polysaccharide complex 150 mg Capsule PO (08:49)
[2022-08-16] MEDS: ferrous sulfate EC 325 mg Tablet PO ×2 (08:49→18:15)
[2022-08-16] MEDS: nicotine 4 mg lozenge MUCOUS MEM ×4 (08:50→19:57)
[2022-08-16] MEDS: insulin glargine 100 units/1 mL 40 UNIT SUBCUT (08:50)
[2022-08-16] MEDS: insulin lispro 100 unit/1 mL SUBCUT ×4 (08:52→21:28)
[2022-08-16] MEDS: oxyCODONE-APAP 5-325 mg Tablet 1 TAB PO ×3 (09:01→21:51)
[2022-08-16] MEDS: cholecalciferol (vitamin D3) 5,000 unit Tablet 5000 UNIT PO (09:13)
[2022-08-16 09:15] LABS: Basophils # 0.1 10^3/uL (0.0-0.1); Basophils % 0.5 %; Eosinophils # 0.5 10^3/uL (0.0-0.8); Eosinophils % 5.1 %; Hematocrit 34.6 % (37.0-47.0); Hemoglobin 9.6 g/dL (11.5-15.3); Lymphocytes # 1.8 10^3/uL (0.8-4.8); Mean Corpuscular HGB Conc 27.7 g/dL (30.0-36.0); Mean Platelet Volume 9.8 fL (7.4-10.4); Monocytes # 0.7 10^3/uL (0.2-0.9); Neutrophils # 6.01 10^3/uL (1.8-7.7); Neutrophils % 65.3 %; Nucleated Red Blood Cells % 0 %; Platelet Count 314 10^3/cmm (130-400); Red Blood Count 4.17 10^6/uL (4.1-5.3); Red Cell Distribution Width 22.8 % (12.1-15.1); White Blood Count 9.2 10^3/uL (4.0-10.0)
[2022-08-16] MEDS: sucralfate 1 gm/10 mL Oral Liq UDC PO ×2 (09:15→21:51)
[2022-08-16 09:43] LABS: Alanine Aminotransferase 14 U/L (0-33); Albumin Level 3.3 g/dL (3.5-5.2); Alkaline Phosphatase 156 U/L (35-105); Blood Urea Nitrogen 22 mg/dL (6-20); Calcium 9.9 mg/dL (8.5-10.5); Carbon Dioxide 21 mmol/L (22-29); Chloride 99 mmol/L (98-107); Ferritin 294 ng/mL (15-150); Globulin 3.1 g/dL (1.3-4.6); Glomerular Filtration Rate 33.3 mL/min (90-130); Glucose 205 mg/dL (65-115); Iron 90 ug/dL (37-145); Osmolality Calculated 281 mOsm/kg (285-295); Sodium 131 mmol/L (136-145); Total Bilirubin 0.3 mg/dL (0.15-1.2); Total Protein 6.4 g/dL (6.6-8.7)
[2022-08-16 09:47] LABS: Anion Gap 16.1 (5-19)
[2022-08-16 09:48] LABS: Aspartate Amino Transferase 25 U/L (0-32); Potassium 5.1 mmol/L (3.5-5.1)
[2022-08-16] MEDS: metoprolol tartrate 25 mg Tablet 12.5 MG PO ×2 (10:19→21:25)
[2022-08-16 10:31] LABS: Bilirubin Urine Neg (Negative); Blood Urine Neg (Negative); Glucose Urine UA 2+ (Normal); Ketones Urine Negative (Negative); Nitrate Urine Negative (Negative); Protein Urine 2+ (Negative); Specific Gravity, Urine 1.005 (1.005-1.030); Urine Appearance SL Hazy (CLEAR); Urine Color Yellow (Yellow); Urobilinogen Urine Norm (Negative); pH Urine 7 (5-7)
[2022-08-16 10:32] LABS: Add Urine Microscopic? YES; Leukocyte Esterase Urine Trace (Negative)
[2022-08-16 10:37] LABS: Add Urine Culture? No; Bacteria Urine TRACE /hpf
[2022-08-16 11:47] LABS: Glucose Point of Care 174 mg/dL (70-110)
--- NOTE | 2022-08-16 13:28 | W.PM.NPUPNS ---
Subjective NPU Subjective: Patient is a 57-year-old white female with a history of PTSD and depression admitted with complaints of auditory hallucinations and visual hallucinations. The patient denied any visual hallucinations or any auditory hallucinations at this time. She reported that her mood had been improving. She had reported some pain in her left forearm. She had reported adequate sleep and reported no nightmares here. She had reported some relief with the possibility of going to [facility] to live upon discharge here. She had reported some improved energy although she continued to report though feeling tired for much of the day. She had continued to isolate herself she had reported depressed mood and continued periods of having occasional flashbacks. She had reported significant pain issues that had been contributing to her worsening depression. She had reported continued periods of fatigue and low energy. She had endorsed some feelings of hopelessness and stated that she had been worried about living by herself without any medical support as she stated that she had had a hard time with completing activities of daily living. She had reported being more forgetful at home and reported that her motivational problems had contributed to her problems with taking medications at times. She had reported some improved sleep with the Seroquel prescribed at 50 mg at night yesterday. Mental Status Exam MSE Comments: This is an overweight, pale white female in hospital bed with poor grooming and adequate eye contact. She had mild psychomotor retardation. She was cooperative with exam in mild distress. Speech was decreased in volume and normal in rate and prosody. Mood was described as a lttle better. Her affect was mood congruent and restricted in range. Thought process was linear and organized. Thought content: patient denies suicidal or homicidal ideation, no delusions were reported or noted. She minimized any auditory hallucinations at this time and did not appear to be responding to internal stimuli. Attention and concentration are intact and memory appeared reliable but none were formally tested. She is alert and oriented times three. Insight is improving and judgment is adequate. Impulse control is fair. Vitals/I&O/Wt Last Vital Signs Temp 98.2 F 08/16/22 06:00 Pulse 83 08/16/22 06:00 Resp 18 08/16/22 09:01 BP 124/76 08/16/22 06:00 Pulse Ox 89 L 08/16/22 06:00 O2 Del Method 08/16/22 06:00 O2 Flow Rate 0 08/16/22 08:00 FiO2 2 08/12/22 21:37 08/15/22 08/16/22 08/16/22 22:59 06:59 14:59 Intake Total 700 / 700 Output Total 400 / 400 Balance 300 / 300 Data NPU 08/16/22 08:56 08/16/22 08:56 A&P Assessment and plan (1) PTSD (post-traumatic stress disorder): (2) Major depressive disorder: (3) Stroke: Plan This is a 57 year old woman with a history of trauma, depression, PTSD and genetic loading for addiction and lethality issues who presents reporting she is unable to return to her home due to safety reasons and is open to going to a longterm for the time being and open to changes in her medications at this time. 1. Continue Cymbalta to 60mg daily to target depression and anxiety. Continue seroquel at 50mg at night to target depression. 2. Therapeutic observation 15-minute checks on the unit. 3. Encourage individual group and milieu therapy. 4. Continue Prazosin at 2mg at night to target PTSD related nightmares. 5. OT evaluation complete. Involuntary Hold Information 96 Hour Hold: 96 Hour Involuntary Admission: No Attestations NPU Medical Necessity Statement*: Inpatient hospitalization is medically necessary and the clinically appropriate intervention at this time. The patient's likely length of stay is 2-4 days. Coding Level of Care Code Acute Code for [facility] Diagnoses PTSD (post-traumatic stress disorder) F43.10 Major depressive disorder F32.9 Stroke I63.9
--- NOTE | 2022-08-16 14:18 | PM.PN ---
Subjective Subjective: Patient was seen this morning, she complains of tiredness, weak, fatigue, she has a UTI, she also complains of some bruising in her left hand and swelling of her left hand, arm, forearm Vitals/I&O/Wt Last Vital Signs Temp 98.2 F 08/16/22 06:00 Pulse 83 08/16/22 06:00 Resp 18 08/16/22 09:01 BP 124/76 08/16/22 06:00 Pulse Ox 89 L 08/16/22 06:00 O2 Del Method 08/16/22 06:00 O2 Flow Rate 0 08/16/22 08:00 FiO2 2 08/12/22 21:37 08/15/22 08/16/22 08/16/22 22:59 06:59 14:59 Intake Total 700 / 700 Output Total 400 / 400 Balance 300 / 300 Physical Exam Const: COMMON NORMALS: no acute distress and patient oriented x3 Resp: COMMON NORMALS: normal respiratory effort, No retractions, No use of accessory muscles and clear to auscultation bilaterally AUSCULTATION: clear to auscultation bilaterally Cardio: COMMON NORMALS: regular rate, regular rhythm, S1 normal heart sound present and S2 normal heart sound present RATE: regular rate RHYTHM: regular rhythm HEART SOUNDS: S1 normal heart sound present and S2 normal heart sound present GI: COMMON NORMALS: Normal to inspection, nondistended, normoactive bowel sounds present and non-tender Neuro: COMMON NORMALS: patient oriented x3 Psych: COMMON NORMALS: mental status grossly normal Data 08/16/22 08:56 08/16/22 08:56 A&P Assessment and plan (1) Anemia due to GI blood loss: (2) Major depressive disorder: (3) Stroke: (4) Anemia: (5) Diabetic neuropathy: (6) Duodenal ulcer: Plan Acute stroke: Patient is doing well acute stroke: Independent Acute on chronic anemia Blood loss anemia Duodenitis gastritis duodenal ulcer Status post 2 units PRBC, continue sucralfate and Protonix likely 6 to 8 weeks Currently neuropsych Hemoglobin stable 9.0 Does have evidence of UTI start cefdinir Has bruising of the left hand, with some swelling, along left hand, left forearm irregular borders, extending up to the elbow Continue conservative intervention rest ice compression elevation Tolerating diet A-fib/DVT history holding aspirin and Eliquis for now We will need to hold her Eliquis for at least 4 weeks Continue iron supplement Currently neuropsych We will follow along Full code Attestations Medical Necessity Statement*: Patient requires hospitalization anemia, UTI Diagnoses Anemia due to GI blood loss D50.0 Major depressive disorder F32.9 Stroke I63.9 Anemia D64.9 Diabetic neuropathy E11.40 Duodenal ulcer K26.9
[2022-08-16 17:26] LABS: Glucose Point of Care 249 mg/dL (70-110)
[2022-08-16] MEDS: hyDROXYzine 25 mg Capsule 50 MG PO (18:15)
[2022-08-16] MEDS: cefdinir 300 MG CAPSULE PO (18:15)
[2022-08-16 20:37] LABS: Glucose Point of Care 218 mg/dL (70-110)
[2022-08-16] MEDS: montelukast sodium 10 mg Tablet PO (21:26)
[2022-08-16] MEDS: atorvastatin 40 mg Tablet PO (21:26)
[2022-08-16] MEDS: prazosin 1 mg Capsule 2 MG PO (21:27)
[2022-08-16] MEDS: quetiapine 25 mg Tablet 50 MG PO (21:27)
[2022-08-16] MEDS: zolpidem 5 mg Tablet 10 MG PO (21:28)
[2022-08-16] MEDS: budesonide 0.5 mg/2 mL Neb INHALATION (21:43)
[2022-08-17] VITALS (7 sets, daily range): BP systolic 113–137; BP diastolic 68–73; PULSE 74–79; RESP 16; TEMP 36.7–36.8; O2SAT 92–97
--- NOTE | 2022-08-17 04:22 | PC.NURSE ---
pt reported feeling some relief in left arm, per pt left forearm bruised due to IV infiltrated while in med/surg, pt also reported LUE swelling pain has improved. pt still refusing to receive insulin in left arm or abdomen. she has been encouraged to rotate sites.
[2022-08-17 08:19] LABS: Glucose Point of Care 212 mg/dL (70-110)
[2022-08-17] MEDS: pantoprazole DR 40 mg Tablet PO ×2 (08:43→18:17)
[2022-08-17] MEDS: duloxetine 60 mg Capsule PO (08:43)
[2022-08-17] MEDS: iron polysaccharide complex 150 mg Capsule PO (08:43)
[2022-08-17] MEDS: gabapentin 300 mg Capsule PO ×3 (08:43→20:23)
[2022-08-17] MEDS: ferrous sulfate EC 325 mg Tablet PO ×2 (08:43→18:17)
[2022-08-17] MEDS: amlodipine 10 mg Tablet PO (08:43)
[2022-08-17] MEDS: sucralfate 1 gm/10 mL Oral Liq UDC PO ×2 (08:43→20:26)
[2022-08-17] MEDS: nicotine 4 mg lozenge MUCOUS MEM ×4 (08:44→18:44)
[2022-08-17] MEDS: insulin glargine 100 units/1 mL 40 UNIT SUBCUT (08:44)
[2022-08-17] MEDS: insulin lispro 100 unit/1 mL SUBCUT ×4 (08:44→21:59)
[2022-08-17] MEDS: cholecalciferol (vitamin D3) 5,000 unit Tablet 5000 UNIT PO (08:44)
[2022-08-17] MEDS: oxyCODONE-APAP 5-325 mg Tablet 1 TAB PO ×3 (08:50→21:19)
[2022-08-17] MEDS: cefdinir 300 MG CAPSULE PO ×2 (09:40→18:19)
[2022-08-17] MEDS: metoprolol tartrate 25 mg Tablet 12.5 MG PO ×2 (09:40→20:23)
[2022-08-17] MEDS: promethazine-dm 6.25-15 mg/5 mL SYRUP (5 mL UD) PO (10:22)
[2022-08-17 12:08] LABS: Glucose Point of Care 188 mg/dL (70-110)
[2022-08-17] MEDS: hyDROXYzine 25 mg Capsule 50 MG PO ×2 (13:26→20:22)
--- NOTE | 2022-08-17 14:40 | P.NPUPN_ITS ---
Subjective NPU Subjective: Patient is a 57-year-old white female with a history of PTSD and depression admitted with complaints of auditory hallucinations and visual hallucinations. She denied any suicidal thoughts at this time. She had reported that she was worried about returning to a new place to live as she is stated having struggles with changes in her living situation. She had felt relief over having some help with managing her complicated medical issues. She reported no side effects from her current medications. She had reported some improvement in regards to energy but reported depressed mood currently. She had reported improved ability to socialize and reported improvement in appetite. Mental Status Exam MSE Comments: This is an overweight, pale white female in hospital bed with poor grooming and adequate eye contact. She had mild psychomotor retardation. She was cooperative with exam in mild distress. Speech was normal in volume and normal in rate and prosody. Mood was described as a lttle better. Her affect was mood congruent and restricted in range. Thought process was linear and organized. Thought content: patient denies suicidal or homicidal ideation, no delusions were reported or noted. She minimized any auditory hallucinations at this time and did not appear to be responding to internal stimuli. Attention and concentration are intact and memory appeared reliable but none were formally tested. She is alert and oriented times three. Insight is improving and judgment is adequate. Impulse control is fair. Vitals/I&O/Wt Last Vital Signs Temp 98.2 F 08/17/22 06:00 Pulse 75 08/17/22 06:00 Resp 16 08/17/22 08:50 BP 113/68 08/17/22 06:00 Pulse Ox 96 08/17/22 06:00 O2 Del Method 08/16/22 21:45 O2 Flow Rate 0 08/17/22 08:00 FiO2 2 08/16/22 21:45 08/16/22 08/17/22 08/17/22 22:59 06:59 14:59 Intake Total 700 / 700 Output Total 400 / 400 Balance 300 / 300 Weight last 48 hrs Weight 82.735 kg Data NPU 08/16/22 08:56 08/16/22 08:56 A&P Assessment and plan (1) PTSD (post-traumatic stress disorder): (2) Major depressive disorder: (3) Stroke: Plan This is a 57 year old woman with a history of trauma, depression, PTSD and genetic loading for addiction and lethality issues who presents reporting she is unable to return to her home due to safety reasons and is open to going to a custodial for the time being and open to changes in her medications at this time. 1. Continue Cymbalta to 60mg daily to target depression and anxiety. Continue seroquel at 50mg at night to target depression. 2. Therapeutic observation 15-minute checks on the unit. 3. Encourage individual group and milieu therapy. 4. Continue Prazosin at 2mg at night to target PTSD related nightmares. 5. OT evaluation complete. Involuntary Hold Information 96 Hour Hold: 96 Hour Involuntary Admission: No Attestations NPU Medical Necessity Statement*: Inpatient hospitalization is medically necessary and the clinically appropriate intervention at this time. The patient's likely length of stay is 2-3 days. Coding Level of Care Code Acute Code for [facility] Diagnoses PTSD (post-traumatic stress disorder) F43.10 Major depressive disorder F32.9 Stroke I63.9
--- NOTE | 2022-08-17 14:44 | PC.NURSE ---
Pt said she wanted warm pack to her arm. Lower left arm noted to be bruised; warm pack applied to pt's left upper arm. Pt said it felt good
[2022-08-17] MEDS: OLANZapine 5 mg ODT PO (16:50)
[2022-08-17 17:49] LABS: Glucose Point of Care 208 mg/dL (70-110)
[2022-08-17] MEDS: quetiapine 25 mg Tablet 50 MG PO (20:20)
[2022-08-17] MEDS: atorvastatin 40 mg Tablet PO (20:21)
[2022-08-17] MEDS: montelukast sodium 10 mg Tablet PO (20:21)
[2022-08-17] MEDS: prazosin 1 mg Capsule 2 MG PO (20:26)
[2022-08-17] MEDS: zolpidem 5 mg Tablet 10 MG PO (20:30)
[2022-08-17] MEDS: blistex lip oint 7 gm Tube 1 APPLIC TOPICAL (21:20)
[2022-08-17] MEDS: budesonide 0.5 mg/2 mL Neb INHALATION (22:28)
[2022-08-18] VITALS (8 sets, daily range): BP systolic 114–153; BP diastolic 68–74; PULSE 76–88; RESP 16–17; TEMP 36.6–37.1; O2SAT 94–99
[2022-08-18 08:00] LABS: Glucose Point of Care 216 mg/dL (70-110)
[2022-08-18 08:00] LABS: Glucose Point of Care 285 mg/dL (70-110)
[2022-08-18] MEDS: amlodipine 10 mg Tablet PO (08:33)
[2022-08-18] MEDS: duloxetine 60 mg Capsule PO (08:33)
[2022-08-18] MEDS: insulin lispro 100 unit/1 mL SUBCUT ×4 (08:33→20:26)
[2022-08-18] MEDS: metoprolol tartrate 25 mg Tablet 12.5 MG PO ×2 (08:34→20:14)
[2022-08-18] MEDS: pantoprazole DR 40 mg Tablet PO ×2 (08:34→17:17)
[2022-08-18] MEDS: gabapentin 300 mg Capsule PO ×3 (08:36→20:14)
[2022-08-18] MEDS: ferrous sulfate EC 325 mg Tablet PO ×2 (08:36→17:17)
[2022-08-18] MEDS: cholecalciferol (vitamin D3) 5,000 unit Tablet 5000 UNIT PO (08:36)
[2022-08-18] MEDS: oxyCODONE-APAP 5-325 mg Tablet 1 TAB PO ×2 (08:36→14:40)
[2022-08-18] MEDS: sucralfate 1 gm/10 mL Oral Liq UDC PO ×2 (08:37→20:16)
[2022-08-18] MEDS: iron polysaccharide complex 150 mg Capsule PO (08:37)
[2022-08-18] MEDS: insulin glargine 100 units/1 mL 40 UNIT SUBCUT (08:41)
[2022-08-18] MEDS: nicotine 4 mg lozenge MUCOUS MEM ×5 (08:45→20:16)
[2022-08-18] MEDS: cefdinir 300 MG CAPSULE PO ×2 (09:34→17:20)
[2022-08-18] MEDS: hyDROXYzine 25 mg Capsule 50 MG PO (10:29)
--- NOTE | 2022-08-18 10:30 | PC.NURSE ---
PRN VISTARIL 50 MG GIVEN PO PER PT C/O STATED ANXIETY, NO OUTWARD S/S OF ANXIETY NOTED
[2022-08-18] MEDS: promethazine-dm 6.25-15 mg/5 mL SYRUP (5 mL UD) PO ×2 (11:16→18:41)
[2022-08-18 12:24] LABS: Glucose Point of Care 205 mg/dL (70-110)
[2022-08-18] MEDS: albuterol 2.5 mg/3 mL Neb INHALATION ×2 (16:23→19:30)
[2022-08-18 17:21] LABS: Glucose Point of Care 240 mg/dL (70-110)
--- NOTE | 2022-08-18 17:51 | P.NPUPN_ITS ---
Subjective NPU Subjective: Patient is a 57-year-old white female with a history of PTSD and depression admitted with complaints of auditory hallucinations and visual hallucinations. The patient denied any side effects patient. She reports that she has been feeling better and was ready to return to her new place of living at [facility]. She had reported no mood symptoms at this time and denied any hallucinations. She had reported some improvement in concentration at this time. She has been able to engage in self-care. Mental Status Exam MSE Comments: This is an overweight, pale white female in hospital bed with improved grooming and fair eye contact. She had mild psychomotor retardation. She was cooperative with exam in mild distress. Speech was normal in volume and normal in rate and prosody. Mood was described as better. Her affect was mood congruent and brighter. Thought process was linear and organized. Thought content: patient denies suicidal or homicidal ideation, no delusions were reported or noted. She minimized any auditory hallucinations at this time and did not appear to be responding to internal stimuli. Attention and concentration are intact and memory appeared reliable but none were formally tested. She is alert and oriented times three. Insight is improving and judgment is adequate. Impulse control is fair. Vitals/I&O/Wt Last Vital Signs Temp 98.7 F 08/18/22 14:00 Pulse 76 08/18/22 16:32 Resp 16 08/18/22 16:32 BP 114/68 08/18/22 14:00 Pulse Ox 94 08/18/22 16:32 O2 Del Method 08/18/22 16:32 O2 Flow Rate 0 08/18/22 09:06 FiO2 2 08/16/22 21:45 Weight last 48 hrs Weight 82.735 kg Data NPU 08/16/22 08:56 08/16/22 08:56 A&P Assessment and plan (1) PTSD (post-traumatic stress disorder): (2) Major depressive disorder: (3) Stroke: Plan This is a 57 year old woman with a history of trauma, depression, PTSD and genetic loading for addiction and lethality issues who presents reporting she is unable to return to her home due to safety reasons and is open to going to a longterm for the time being and open to changes in her medications at this time. 1. Continue Cymbalta to 60mg daily to target depression and anxiety. Increase Seroquel to 100 mg at night to target depression. 2. Therapeutic observation 15-minute checks on the unit. 3. Encourage individual group and milieu therapy. 4. Continue Prazosin at 2mg at night to target PTSD related nightmares. 5. Discharge likely tomorrow to assisted living. Involuntary Hold Information 96 Hour Hold: 96 Hour Involuntary Admission: No Attestations NPU Medical Necessity Statement*: Inpatient hospitalization is medically necessary and the clinically appropriate intervention at this time. The patient's likely length of stay is 1-2 days. Coding Level of Care Code Acute Code for [facility] Fwd Diagnoses PTSD (post-traumatic stress disorder) F43.10 Major depressive disorder F32.9 Stroke I63.9
--- NOTE | 2022-08-18 18:42 | PC.NURSE ---
PRN PHENERGAN 5 ML GIVEN PO PER PT C/O COUGH
[2022-08-18] MEDS: budesonide 0.5 mg/2 mL Neb INHALATION (19:30)
[2022-08-18] MEDS: prazosin 1 mg Capsule 2 MG PO (20:12)
[2022-08-18] MEDS: atorvastatin 40 mg Tablet PO (20:13)
[2022-08-18] MEDS: montelukast sodium 10 mg Tablet PO (20:13)
[2022-08-18] MEDS: quetiapine 100 mg Tablet PO (20:13)
[2022-08-18 20:20] LABS: Glucose Point of Care 311 mg/dL (70-110)
[2022-08-18] MEDS: zolpidem 5 mg Tablet 10 MG PO (20:24)
--- NOTE | 2022-08-18 20:25 | PC.NURSE ---
PT STATED I NEED SOMETHING FOR SLEEP / INSOMNIA. PT WAS GIVEN AMBIEN ORDERED.
[2022-08-19 06:00] VITALS: BP 114/67; PULSE 87; RESP 18; TEMP 37.1; O2SAT 95
[2022-08-19 08:13] LABS: Glucose Point of Care 212 mg/dL (70-110)
[2022-08-19] MEDS: insulin lispro 100 unit/1 mL SUBCUT (08:44)
[2022-08-19] MEDS: insulin glargine 100 units/1 mL 40 UNIT SUBCUT (08:44)
[2022-08-19] MEDS: metoprolol tartrate 25 mg Tablet 12.5 MG PO (08:45)
[2022-08-19] MEDS: nicotine 4 mg lozenge MUCOUS MEM (08:45)
[2022-08-19] MEDS: amlodipine 10 mg Tablet PO (08:45)
[2022-08-19] MEDS: gabapentin 300 mg Capsule PO (08:45)
[2022-08-19] MEDS: duloxetine 60 mg Capsule PO (08:45)
[2022-08-19] MEDS: iron polysaccharide complex 150 mg Capsule PO (08:45)
[2022-08-19 08:46] VITALS: RESP 17
[2022-08-19] MEDS: cholecalciferol (vitamin D3) 5,000 unit Tablet 5000 UNIT PO (08:46)
[2022-08-19] MEDS: oxyCODONE-APAP 5-325 mg Tablet 1 TAB PO (08:46)
[2022-08-19] MEDS: pantoprazole DR 40 mg Tablet PO (08:46)
[2022-08-19] MEDS: sucralfate 1 gm/10 mL Oral Liq UDC PO (08:46)
[2022-08-19] MEDS: ferrous sulfate EC 325 mg Tablet PO (08:46)
[2022-08-19] MEDS: cefdinir 300 MG CAPSULE PO (08:58)
--- NOTE | 2022-08-19 09:11 | DCPLANNER ---
Imm was printed and explained and given to pt. A copy was placed in her file.
[2022-08-19] MEDS: promethazine-dm 6.25-15 mg/5 mL SYRUP (5 mL UD) PO (09:28)
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
[2022-08-19 11:26] VITALS: RESP 17
== END 2022-08-19 12:25 | disposition home or self-care (01) | DRG 64 ==
LOC: ER 22:16 → MEDSURG 22:33 → NP 08-09 16:30 → MEDSURG 08-11 15:26 → NP 08-13 11:31
PROVIDERS: Family Medicine; Internal Medicine; Surgery; Admitting Provider Student in an Organized Health Care Education/Training Program; Emergency Provider Emergency Medicine; PCP Nurse Practitioner Family; Visit Provider Psychiatry & Neurology Psychiatry
PROC: 0DJ08ZZ Inspection of Upper Intestinal Tract, Via Natural or Artificial Opening Endoscopic (ICD-10-PCS; CPT 43235; principal; 2022-08-12 07:00)
PROC: 0DJD8ZZ Inspection of Lower Intestinal Tract, Via Natural or Artificial Opening Endoscopic (ICD-10-PCS; CPT 45378; 2022-08-12 07:00)
DX: I63.549 Cerebral infarction due to unspecified occlusion or stenosis of unspecified cerebellar artery (principal); K26.4 Chronic or unspecified duodenal ulcer with hemorrhage; K29.81 Duodenitis with bleeding; R45.851 Suicidal ideations; R27.0 Ataxia, unspecified; R29.708 NIHSS score 8; K29.70 Gastritis, unspecified, without bleeding; F32.9 Major depressive disorder, single episode, unspecified; F43.10 Post-traumatic stress disorder, unspecified; F22 Delusional disorders; D50.0 Iron deficiency anemia secondary to blood loss (chronic); I69.392 Facial weakness following cerebral infarction; Z85.528 Personal history of other malignant neoplasm of kidney; F17.290 Nicotine dependence, other tobacco product, uncomplicated; F17.210 Nicotine dependence, cigarettes, uncomplicated; Z86.16 Personal history of COVID-19; Z88.2 Allergy status to sulfonamides; I48.0 Paroxysmal atrial fibrillation; Z86.718 Personal history of other venous thrombosis and embolism; K64.8 Other hemorrhoids; K63.5 Polyp of colon; Z91.199 Patient's noncompliance with other medical treatment and regimen due to unspecified reason; G89.29 Other chronic pain; D63.1 Anemia in chronic kidney disease; E78.5 Hyperlipidemia, unspecified; E11.22 Type 2 diabetes mellitus with diabetic chronic kidney disease; I12.9 Hypertensive chronic kidney disease with stage 1 through stage 4 chronic kidney disease, or unspecified chronic kidney disease; N18.32 Chronic kidney disease, stage 3b; H02.402 Unspecified ptosis of left eyelid; F50.89 Other specified eating disorder; Z68.33 Body mass index [BMI] 33.0-33.9, adult; Z90.5 Acquired absence of kidney; I25.2 Old myocardial infarction; I25.10 Atherosclerotic heart disease of native coronary artery without angina pectoris; Z95.5 Presence of coronary angioplasty implant and graft; E11.65 Type 2 diabetes mellitus with hyperglycemia; E11.40 Type 2 diabetes mellitus with diabetic neuropathy, unspecified; Z79.4 Long term (current) use of insulin
CPT/HCPCS: 36415; 36416; 36430; 43239; 45385; 70450; 71045; 76770; 80048; 80053; 80061; 80306; 81001; 82009; 82274; 82550; 82728; 82746; 82962; 83036; 83540; 83550; 83721; 84155; 84165; 84484; 85014; 85018; 85025; 86160; 86162; 86235; 86255; 86376; 86850; 86900; 86920; 88305; 92507; 92523; 92526; 92610; 93005; 93306; 93880; 94640; 96372; 96374; 96376; 97110; 97116; 97161; 97165; 97166; 97167; 97530; 97535; 99238; C9113; J1650; J1756; J1815; J2270; J2405; J2704; J7030; J7050; J7613; J7626; P9016; Q0162